=== PATIENT | female | born 1945 | race Caucasian/White ===

== ENCOUNTER → 2018-03-18 14:30 | Outpatient (CLI) | payer MEDICARE, SELFPAY ==
--- NOTE | 2018-03-18 | DI.MRI.S_ITS ---
PROCEDURE: MR KNEE RT WO CON INDICATIONS: RIGHT KNEE PAIN TECHNIQUE: Noncontrast sagittal PD fast spin echo and T2 fast spin echo with fat saturation, sagittal 3-D FLASH with fat saturation; coronal T1 spin echo and PD fast spin echo with fat saturation, and axial PD fast spin echo with fat saturation through the knee. COMPARISON: None. FINDINGS: Image quality: Excellent. Menisci: There is peripheral displacement of medial meniscus bony medial collateral ligament. Suggestion of complex tear involving posterior horn of medial meniscus extending to inferior articulating surface. No evidence of focal lateral meniscal tear. The meniscal root ligaments appear intact. Cruciate ligaments: Degenerative changes throughout ACL is seen. No evidence of full thickness ACL rupture. PCL is intact. Medial structures: The medial collateral ligament appears intact. The posterior oblique ligament, semimembranosus tendon insertions, oblique popliteal ligament, and meniscocapsular junction appear intact. Visualized portions of the pes anserinus tendons appear normal. No abnormal bursal fluid. Lateral structures: The lateral collateral ligament, long and short heads of the biceps femoris tendon appear intact. The popliteus tendon appears normal; the popliteofibular ligament appears intact. The posterosuperior and anteroinferior popliteomeniscal fascicles appear intact. The arcuate and fabellofibular ligaments appear intact, on either side of the lateral inferior geniculate artery. Iliotibial band appears normal. Anterior structures: The quadriceps and patellar tendons appear intact. Patellar alignment is normal. No femoral trochlear dysplasia or ventral trochlear prominence. No edema in the infrapatellar fat pad. Bones and cartilage: There is moderate to severe tricompartmental osteoarthritis. No fracture or dislocation. Significant chondromalacia patella small patella cartilage is seen. Joint space: There is small to moderate amount of knee joint fluid. No Osman's cyst. Normal appearing synovial plicae are incidentally noted. Impression: 1. Complex tear involving posterior horn of medial meniscus extending to inferior articulating surface. Peripheral displacement of medial meniscus bony medial collateral ligament. No evidence of focal lateral meniscal tear. 2. Myxoid degenerative changes throughout ACL. No full thickness ACL rupture. PCL is intact. 3. Moderate to severe tricompartmental osteoarthritis. Diffuse chondromalacia patella. . Dictated by: Carl Ta M.D. on 03/18/2018 at 16:20 Approved by: Carl Ta M.D. on 03/18/2018 at 16:25
== END ==
PROVIDERS: Visit Provider Orthopaedic Surgery
DX: S83.231A Complex tear of medial meniscus, current injury, right knee, initial encounter (principal); M25.561 Pain in right knee; M17.11 Unilateral primary osteoarthritis, right knee; M22.41 Chondromalacia patellae, right knee
CPT/HCPCS: 73721

== ENCOUNTER → 2018-03-27 16:09 | Outpatient (CLI) | payer MEDICARE, SELFPAY ==
[2018-03-27 16:25] LABS: RBC Urine None Seen (0-5/HPF)
[2018-03-27 16:45] LABS: Add Manual Diff / Slide Review NO; Basophils Percent Auto 0.6 % (0-2); Eosinophils Percent Auto 2.8 % (2-4); Hematocrit 39.5 % (36-46); Hemoglobin 13.7 g/dL (12.0-16.0); Lymphocytes Percent Auto 27.8 % (25-40); Mean Corpuscular HGB Conc 34.6 % (30-36); Mean Corpuscular Hemoglobin 30.7 PG (26-34); Mean Corpuscular Volume 88.7 fL (80-100); Monocytes Percent Auto 8.1 % (3-14); Neutrophils Absolute Auto 5500 /uL (3000-5900); Neutrophils Percent Auto 60.7 % (50-75); Platelet Count 233 X10^3/uL (150-400); Red Blood Cell Count 4.45 X10^6/uL (4.0-5.2); Red Cell Distribution Width 13.7 % (11.6-14.8)
[2018-03-27 17:12] LABS: Appearance Urine UA CLEAR; Bilirubin Urine UA NEGATIVE (NEGATIVE); Color Urine UA YELLOW; Glucose Urine UA NEGATIVE (Normal); Ketones Urine UA NEGATIVE (NEGATIVE); Leukocyte Esterase Urine UA TRACE (NEGATIVE); Nitrite Urine UA Negative (Negative); Occult Blood Urine UA NEGATIVE (Negative); Protein Urine UA NEGATIVE (Negative); Urobilinogen Urine UA 0.2 E.U./dL (0.2); pH Urine UA 6.5 (4.5-8.0)
[2018-03-27 17:19] LABS: Bacteria Urine Occasional (0-1); Culture Indicated Urine Specimen Cultured; Squamous Epithelial Cell Urine 1-5 /HPF; WBC Urine 1-5/HPF (0-5/HPF)
[2018-03-27 17:20] LABS: BUN Creatinine Ratio 22.5 (6-22); Blood Urea Nitrogen 18 mg/dL (7-17); Calcium 9.4 mg/dL (8.4-10.2); Carbon Dioxide 28 mmol/L (22-32); Chloride 100 mmol/L (98-107); Estimated Glomerular Filt Rate > 60.0 mL/min (>60); Glucose 91 mg/dL (80-110); HEMOLYSIS < 15 (0-50); Sodium 138 mmol/L (137-145)
[2018-03-27 17:22] LABS: Hemoglobin A1C% w Est Avg Glu 5.4 % (4.0-6.0)
== END ==
PROVIDERS: Visit Provider Orthopaedic Surgery
DX: Z01.818 Encounter for other preprocedural examination (principal); Z01.812 Encounter for preprocedural laboratory examination; N39.9 Disorder of urinary system, unspecified; R73.09 Other abnormal glucose
CPT/HCPCS: 36415; 80048; 81001; 83036; 85025; 87086; 93005; 93010

== ENCOUNTER 2018-05-15 08:10 | Day surgery (SDC) | payer MEDICARE, SELFPAY ==
[2018-04-30 13:54] VITALS: BMI 30.5
[2018-05-15] VITALS (18 sets, daily range): BP systolic 83–139; BP diastolic 35–76; PULSE 58–95; RESP 10–20; TEMP 36.1–37.1; O2SAT 91–99; BMI 30.2
--- NOTE | 2018-05-15 06:00 | DI.RAD.S_ITS ---
PROCEDURE: XR KNEE RT 1TO2V INDICATIONS: post operative TECHNIQUE: 2 view(s) of the knee acquired. COMPARISON: None. FINDINGS: Bones: Patient is status post knee joint arthroplasty. Hardware components are in expected positions. Visualized bony structures are intact. Soft tissues: Overlying postoperative changes are noted. IMPRESSION: Post right total knee arthroplasty with anatomic right knee alignment. Dictated by: Carl Ta M.D. on 05/15/2018 at 14:09 Approved by: Carl Ta M.D. on 05/15/2018 at 14:09
[2018-05-15] MEDS: LACTATED RINGERS 1,000 ML 42 ML IV ×2 (09:28→12:27)
[2018-05-15] MEDS: VANCOMYCIN 1,000 MG/200 ML FROZ.PIGGY 200 MG IV (09:29)
[2018-05-15] MEDS: ACETAMINOPHEN 325 MG TABLET 975 MG PO ×3 (09:34→20:18)
[2018-05-15] MEDS: CELECOXIB 200 MG CAPSULE PO (09:34)
[2018-05-15] MEDS: PREGABALIN 75 MG CAPSULE PO (09:34)
--- NOTE | 2018-05-15 10:07 | PM.PREOP ---
Pre-operative Note Interval Note Pre-op Check: Yes History & Physical Reviewed by Physician and Yes Exam Performed Changes: No
[2018-05-15] MEDS: CEFAZOLIN 2 GM/100 ML FROZ.PIGGY IV ×2 (10:50→20:15)
--- NOTE | 2018-05-15 11:25 | SUR.OPER ---
Supine on padded OR bed. Pillow under head, arms secured on padded armboards <90 degree abduction. Safety belt across torso. Non-operative leg secured with tape over blanket over lower leg. Operative leg secured in DeMayo/Cruzito positioner. Foam padded brace at thigh of operative leg.
[2018-05-15] MEDS: BUPIVACAINE 0.25% W/ EPI VIAL 50 ML INJ (11:29)
[2018-05-15] MEDS: BUPIVACAINE LIPOSOME 266 MG/20 ML VIAL INJ (11:30)
--- NOTE | 2018-05-15 13:21 | P.OP_ITS ---
Operative Date/Time/Diagnoses Date of procedure: 05/15/18 Time of procedure: 13:01 Pre-op diagnosis: right knee OA Post-op diagnosis: same Procedure & Clinicians Procedure: right total knee arthroplasty Same procedure as scheduled: Yes Indications: The patient has had progressively worsening right knee pain with radiographic changes consistent with arthritis. Non-operative management has failed and the patient has requested total knee replacement. The risks, benefits and alternatives to surgery were discussed with the patient prior to proceeding. Risks discussed included, but were not limited to, failure to relieve pain, stiffness, infection, nerve damage, deep venous thrombosis, pulmonary embolism, stroke, coma, heart attack, permanent paralysis and , as well as the potential need for eventual revision of the prosthetic. Surgeon: Emily Basurto Contact Center Analyst: Mirta Batres Anesthesia Type: General and Spinal Operative Notes Findings: Severe right knee osteoarthritis Closure Type: primary Specimen(s): none sent Implants & Drains: William BCS2 35 mm patella, size 5 right femur, size 5 right tibia, +10 poly Applied: drain(s) Estimated Blood Loss (mL): 250 Blood products transfused: none Tourniquet time (min): 75 Procedure in detail: The patient was seen in the pre-operative area, where the patient identified the right knee as the operative site and this was marked with my initials. The patient received pre-operative antibiotics, and was taken to the operating room and placed on the operative table in the supine position. After satisfactory anesthesia, a full time paramedic out was performed. The right leg was encircled with a tourniquet about the proximal thigh, and the leg was prepared from the toes to the tourniquet with ChloroPrep in the usual fashion and draped through sterile drapes. The leg was elevated and exsanguinated with Eschmark bandage and the tourniquet inflated to [250] mmHg pressure. The knee was approached through an approximately 18 cm incision centered over the patella and carried into the knee through a medial parapatellar arthrotomy. A portion of the medial and lateral meniscus was resected. Soft tissue was carefully mobilized around the patella the patella was measured with a caliper. Bone was resected from the patella and the patellar height was reconstituted with up an appropriate sized patellar component. A cover was then placed on the patella. A small amount of additional medial and lateral meniscus was resected. The visionare guide fit well to the distal femur. It looked like an appropriate distal femoral cut and the cut was made without difficulty. The rotation was assessed and the appropriate size femoral guide was placed on the distal femur and finishing cuts were made. There was no evidence of notching. The anterior, posterior and chamfer cuts were then made. The posterior osteophytes and soft tissues were then removed. The posterior capsule was injected with part of a mixture of 60 ml 0.25% Marcaine mixed with 20 ml Exparel for post operative pain control. The remainder of this mixture was injected into the capsule and subcutaneous tissues during cement curing. The tibia was prepared and the visionaire guide fit well to the distal tibia. The rotation was assessed. The patient was placed in extension residual medial and lateral meniscus as well as any residual bone was carefully resected. [No] additional tibia was resected. Hemostasis was achieved especially posteriorly. Additional local was injected into the posterior capsule. The extension gap was assessed and additional releases for gap balancing were performed as necessary. It was checked with the gap corporate development manager. The femoral component was trial was placed and the notch was finished. Trial tibial and femoral components were then placed and the knee placed through a range of motion. Range of motion was [ 0-130], with good stability throughout the range. The trials were then removed, and the tibia was finished. The bone was prepared with pulsatile lavage, and dried with a sponge. Cement was applied and the final prosthetics placed. Excess cement was removed during and after cement curing. A brief Betadine soak was performed. After confirming there was no extruded cement posteriorly, the final tibial insert was placed. The knee was copiously irrigated and the tourniquet deflated. Hemostasis was obtained with the [Aquamantys system]. A drain was placed and brought out superolaterally. The capsule was closed with interrupted nonabsorbable suture. The subcutaneous layer was closed with barbed sutures, and the skin with a running 3-0 V-Lock suture and Surgical glue. An Aquacel Ag dressing was applied and the patient was taken to recovery having tolerated the procedure well. Complications: none Condition: stable Disposition: Acute Care Plan for aftercare: The patient will be maintained on a standard total knee replacement protocol with weight bearing as tolerated. The patient will receive aspirin and sequential compression devices for DVT prophylaxis. The patient will be discharged home when safe for the home environment.
[2018-05-15] MEDS: LACTATED RINGERS 1,000 ML 125 ML IV (15:41)
--- NOTE | 2018-05-15 17:15 | PT.IIE ---
Current Diagnoses Unilateral primary osteoarthritis, right knee (05/15/18) Surgery Performed Operation Date: 05/15/18 10:45 Actual Procedures p Total Knee Arthroplasty(Right) - Emily Basurto MD Surgical History (Last Updated 04/30/18 @ 14:17 by Ewelina Andersen, RN) History of total right hip arthroplasty (Acute) Medical History (Last Updated 04/30/18 @ 14:20 by Ewelina Andersen, RN) Anxiety (Acute) Arthritis (Acute) Asthma (Acute) GERD (gastroesophageal reflux disease) (Acute) HTN (hypertension) (Acute) Heart murmur (Acute) Hyperlipidemia (Acute) Migraines (Acute) Physical Therapy Inpatient Evaluation/Re-Eval M1 PT/OT-IP Prior Functional Status Start: 05/15/18 17:17 Freq: NEEDED Status: Active Protocol: Document 05/15/18 17:15 DLM (Rec: 05/15/18 17:28 DLM [email or web address]) Medical Review Prior Functional Status Medical History Reviewed Yes Diet/Fluid Consistency Regular Communication WNL Mobility and Gait Independent without device, ambulates community distances Activities of Daily Living and IADL's Independent Social History Household Members family Living Arrangements House Number of Floors (Floors) One Floor Number of Stairs To Enter/Railing? 3 with rail Home Equipment Four Wheel Walker Straight Cane M2 PT-IP Current Condition Start: 05/15/18 17:17 Freq: NEEDED Status: Active Protocol: Document 05/15/18 17:15 DLM (Rec: 05/15/18 17:28 DLM [email or web address]) Physical Therapy Current Condition Current Condition Evaluation Date 05/15/18 Treatment Diagnosis right TKA Onset Date 05/15/18 Weight Bearing Status Weight Bearing Status Weight Bear as Tolerated M3 PT-IP Subjective Start: 05/15/18 17:17 Freq: NEEDED Status: Active Protocol: Document 05/15/18 17:15 DLM (Rec: 05/15/18 17:28 DLM [email or web address]) Subjective Physical Therapy Visit Type Type Initial Evaluation Visit Start Time 16:35 Visit Stop Time 17:15 Total Visit Minutes 40 Number of ORTHOPEDIC TECH Visits 0 Physical Therapy Visit Comments Patient Comments she feels a little whoozy, describes double vision while up walking Patient Goals discharge home with help from her Boyfriend, Jake Therapy Pain Assessment Pain When Pain Assessed After Treatment Pain Present Pain Present Pain Reported Location Right Knee Intensity 2 Scale Used Numeric (1 - 10) Description Aching Pain Management Techniques Apply Cold M4 PT-IP Mobility and Gait Start: 05/15/18 17:17 Freq: NEEDED Status: Active Protocol: Document 05/15/18 17:15 DL (Rec: 05/15/18 17:28 [facility] [email or web address]) PT-Transfer Assessment Sit to and From Stand Sit to and from Stand Standby Assistance Use of Upper Extremities Equipment Transfer Assistive Device Gait Belt Front Wheeled Walker Transfers Transfer Destination Chair Transfer Technique Stand Step Pivot Transfer Ability Level of Assist Standby Assistance Use of Upper Extremities Comments Mobility Comments BP checked before mobility and is 128/66 Pt was up in chair at start of visit, left sitting up for dinner Gait Assessment Gait Gait Assistance Required: Standby Assistance Distance (Feet) 65 Able to Maintain Weight Bearing Status Yes During Gait Assistive Devices Assistive Device Gait Belt Front Wheeled Walker Gait Deviations General Gait Pattern Antalgic Factors Limiting Gait Function Factors Limiting Gait Function Decreased Activity Tolerance Decreased Strength PT-Balance Assessment Sitting Balance and Reactions Static Sitting Balance Ability Normal Dynamic Sitting Balance Ability Normal Standing Balance and Reactions Static Standing Balance Ability Good Dynamic Standing Balance Ability Good Device Used FWW M5 PT-IP Objective Assessments Start: 05/15/18 17:17 Freq: NEEDED Status: Active Protocol: Document 05/15/18 17:15 DL (Rec: 05/15/18 17:28 [facility] [email or web address]) Orientation Orientation/Cognition Level of Alertness Alert Orientation Name Age Birthday Month Date Year Day of Week Place Situation Language Function Ability No Deficits Noted Safety Awareness Understands Safety Issues Memory Description No Deficits Noted Comments whoozy feeling did not get better or worse during therapy , double vision during gait got better once she returned to sitting in chair Gross Range of Motion Upper Extremity ROM Assessment Within Functional Limits Lower Extremity ROM Assessment Right Impaired Impairments post-op, extension 0 degrees, flexion 80 degrees Strength Upper Extremity Strength Assessment Within Functional Limits Lower Extremity Strength Assessment Right Impaired Hip independent in straight leg raise off chair Knee knee ext 3-/5, flexion 3+/5 Ankle moving ankle actively Comments Strength Comments right knee post-op Coordination Assessment Gross Coordination Gross Coordination WNL Sensation Assessment Comments Sensation Comments she describes numbness in buttock area post-op Muscle Tone Muscle Tone WNL Yes M6 PT-IP Treatment Start: 05/15/18 17:17 Freq: NEEDED Status: Active Protocol: Document 05/15/18 17:15 DLM (Rec: 05/15/18 17:28 DLM [email or web address]) Physical Therapy Treatment Exercises Exercises Ankle Pumps Education Education Provided Weight Bearing Status Post-Op Packet Safety M7 PT-IP Assessment and Plan Start: 05/15/18 17:17 Freq: NEEDED Status: Active Protocol: Document 05/15/18 17:15 DLM (Rec: 05/15/18 17:28 DLM [email or web address]) PT Summary Assessment and Plan Potential Rehabilitation Potential Excellent Status of Condition at Evaluation Evolving Summary Impairments Pain ROM Strength Balance Bed Mobility Transfers Assessment Summary She tolerated light activity this visit with some complaints of feeling whoozy and double vision during gait . BP was WNL during this visit . Pt left sitting up in recliner for dinner. Anticipate she will be able to discharge home when medically cleared. Will do stair training next visit. Goals Bed Mobility Goal Independent Transfer Goal Independent Front Wheeled Walker Gait Goal Independent Front Wheel Walker Gait Distance 150 feet Other Goals up and down 3 steps with one rail and cane with SBA Days to Meet Goals 2 Frequency of Treatment Frequency Of Treatment Twice a Day Treatment Plan Physical Therapy Treatment Plan Bed Mobility Training Transfer Training Gait Training Therapeutic Exercise Balance Retraining Post Op Education Discharge Planning Hot or Cold Pack Recommendations To Nursing Amount of Assist Needed 1 Person Assist Discharge Recommendations PT Discharge Recommendations Home with Assistance Outpatient PT
[2018-05-15] MEDS: ASPIRIN EC 81 MG TABLET PO (20:18)
[2018-05-15] MEDS: ATORVASTATIN 20 MG TABLET 40 MG PO (20:18)
[2018-05-15] MEDS: TRAZODONE 50 MG TABLET PO (20:19)
[2018-05-15] MEDS: DOCUSATE 100 MG CAPSULE PO (20:19)
--- NOTE | 2018-05-15 21:58 | PC.NURSE ---
POST-OP pt laying in bed, easily arousable. R knee RITA wrap dressing and hemovac intact. pt agreeable to get up to chair after encouragement from MD. VALLEJO with FWW for ambulation. Pt initially c/o numbness to bottom or R foot and buttock area at the beginning of the shift (pt states now resolved). c/o minimal pain rated 2-3/10, controlled on scheduled tylenol. pt currently resting in bed. call light within reach.
[2018-05-16] MEDS: OXYCODONE IR 5 MG TABLET PO ×3 (00:31→13:55)
[2018-05-16] MEDS: LACTATED RINGERS 1,000 ML 125 ML IV (00:33)
[2018-05-16 01:30] VITALS: O2SAT 95
[2018-05-16] MEDS: CEFAZOLIN 2 GM/100 ML FROZ.PIGGY IV (02:48)
[2018-05-16 05:27] VITALS: BP 138/70; PULSE 67; RESP 17; TEMP 36.4; O2SAT 96
--- NOTE | 2018-05-16 05:28 | PC.NURSE ---
AxOx3, good PO intake, IVF stopped this AM, no nausea. Pain controlled with 5mg Percolone. Ice applied to right knee which is in an mayte wrap, hemovac in place draining 150cc of sanguinous drainage. Ambulates with one person assist and walker to bathroom. SCDs bilaterally applied. Tolerating room air at 96%. CMS +. No numbness. Right leg elevated on pillow
[2018-05-16 06:29] LABS: Hematocrit 33.6 % (36-46); Hemoglobin 11.7 g/dL (12.0-16.0)
[2018-05-16 07:00] VITALS: BP 116/55; PULSE 61; RESP 16; TEMP 36.3; O2SAT 92
--- NOTE | 2018-05-16 07:43 | PM.DS.1 ---
History of Present Illness Chief complaint: [id number] RIGHT TOTAL KNEE ARTHROPLASTY Discharge Providers Date of admission: 05/15/18 08:10 Primary care physician: Maylin Bautista Consults: 05/15/18 14:21 Consult to Discharge Planning Routine Comment: Consult to Physical Therapy Evaluate & Treat Comment: oob today Physician Instructions: postop TKA protocol Consult to Respiratory Therapy Evaluate & Treat Comment: Physician Instructions: Evaluate and treat Discharge provider: Emily Basurto MD Discharge Date: 05/16/18 Summary Discharge Diagnosis: Left total knee arthroplasty Hospital Course: Patient was taken to the operating room and underwent a left total knee arthroplasty. She saw physical therapy and was mobilized to the bathroom. She was stable during her hospital stay and was able to ambulate with a walker without difficulty. She was discharged to home. Her leg was benign and she was able to do a straight leg raise the time of discharge. Patient did well and slightly better than anticipated and was ready for discharge on postoperative day 1. Exam Vital Signs (past 8 hours): - 05/16/18 01:30 05/16/18 05:27 Temperature 97.5 F L Pulse Rate 67 Respiratory Rate 17 Blood Pressure 138/70 Pulse Oximetry 95 96 Oxygen Delivery Method Nasal Cannula Oxygen Flow Rate 0 Narrative Exam Narrative: Alert oriented ambulating without difficulty, dressings dry neurologically intact distally calf is soft able to do a straight leg raise drainage has stopped in the Hemovac tube Objective Labs Result Diagrams: 05/16/18 06:18 Labs: Laboratory Results - last 24 hr 05/16/18 06:18 Hgb 11.7 L Hct 33.6 L Discharge Plan Discharge Plan Patient Disposition: Home Discharge comment: Discharge to home. Keep previously scheduled follow-up appointment in 10-14 days. Ambulate multiple times per day. Discharge Med Rec/Prescriptions Prescriptions: New oxycodone 5 mg Tablet 5 mg PO Q3HR PRN (Reason: Pain, Moderate (4-6)) Qty: 30 RF: 0 No Action atorvastatin 40 mg Tablet 40 mg PO BEDTIME RF: 0 potassium chloride 10 mEq Capsule, Extended Release 10 meq PO DAILY RF: 0 citalopram 40 mg Tablet 40 mg PO DAILY RF: 0 trazodone 50 mg Tablet 50 mg PO BEDTIME RF: 0 aspirin 81 mg Tablet,Delayed Release (Dr/Ec) 81 mg PO DAILY RF: 0 meloxicam 7.5 mg Tablet 7.5 mg PO DAILY RF: 0 ibuprofen 200 mg Tablet 200 mg PO DAILY PRN (Reason: pain) RF: 0 ranitidine HCl 150 mg Capsule 150 mg PO BID RF: 0 triamterene-hydrochlorothiazid 75-50 mg Tablet 1 tab PO QAM RF: 0 Provider Discharge Instructions Diet: Diet as Tolerated Activity: ambulate around the house Cold/Heat Therapy: ice knee multiple times a day Skin/Wound/Dressing Care Report to your healthcare provider any signs of infection, such as:: chills, fever, night sweats, increased pain and unusual drainage Dressing: keep dressing on until appointment Visit Report/Discharge Packet Instructions: DI for Knee Replacement Discharge Data Primary Care Provider: Maylin Bautista Attending Provider: Emily Basurto Admit Date/Time: 05/15/18 08:10
[2018-05-16] MEDS: TRIAMTERENE/HCTZ 37.5/25 TABLET 1 CAP PO (09:42)
[2018-05-16] MEDS: DOCUSATE 100 MG CAPSULE PO (09:43)
[2018-05-16] MEDS: POTASSIUM CHLORIDE 10 MEQ TAB PO (09:43)
[2018-05-16] MEDS: ACETAMINOPHEN 325 MG TABLET 975 MG PO (09:43)
[2018-05-16] MEDS: ASPIRIN EC 81 MG TABLET PO (09:43)
[2018-05-16] MEDS: CITALOPRAM 20 MG TABLET 40 MG PO (09:43)
[2018-05-16] MEDS: MELOXICAM 7.5 MG TABLET PO (09:43)
--- NOTE | 2018-05-16 10:27 | PT.IPTN ---
Current Diagnoses Unilateral primary osteoarthritis, right knee (05/15/18) Surgery Performed Operation Date: 05/15/18 10:45 Actual Procedures p Total Knee Arthroplasty(Right) - Emily Basurto MD Physical Therapy Treatment Note M2 PT-IP Current Condition Start: 05/15/18 17:17 Freq: NEEDED Status: Active Protocol: Document 05/16/18 10:27 [facility] (Rec: 05/16/18 10:33 [facility] [id number]) Physical Therapy Current Condition Current Condition Evaluation Date 05/15/18 Treatment Diagnosis right TKA Onset Date 05/15/18 Weight Bearing Status Weight Bearing Status Weight Bear as Tolerated M3 PT-IP Subjective Start: 05/15/18 17:17 Freq: NEEDED Status: Active Protocol: Document 05/16/18 10:27 [facility] (Rec: 05/16/18 10:33 [facility] [id number]) Subjective Physical Therapy Visit Type Type Treatment Note Visit Start Time 09:52 Visit Stop Time 10:27 Total Visit Minutes 35 Number of MARKETING SERVICES SPECIALIST Visits 0 Physical Therapy Visit Comments Patient Comments pt states she feels pretty good, she didn't sleep well but pain is well controlled. Therapy Pain Assessment Location Right Knee Intensity 2 Scale Used Numeric (1 - 10) Pain Management Techniques Apply Cold M4 PT-IP Mobility and Gait Start: 05/15/18 17:17 Freq: NEEDED Status: Active Protocol: Document 05/16/18 10:27 RCC (Rec: 05/16/18 10:33 [facility] [id number]) PT-Bed Mobility Assessment Sit to Supine Sit to Supine Independent Scooting Scooting to Edge of Bed Independent PT-Transfer Assessment Sit to and From Stand Sit to and from Stand Standby Assistance Equipment Transfer Assistive Device Gait Belt Front Wheeled Walker Transfers Transfer Destination Bed Transfer Technique Stand Step Pivot Transfer Ability Level of Assist Standby Assistance Gait Assessment Gait Gait Assistance Required: Standby Assistance Distance (Feet) 80 Assistive Devices Assistive Device Gait Belt Front Wheeled Walker Gait Deviations General Gait Pattern Ataxic Decreased Feet Clearance Factors Limiting Gait Function Factors Limiting Gait Function Decreased Strength Limited Range of Motion Pain Stair Climbing Assessment Evaluation Level of Assist On Stairs Standby Assistance Devices Stair Climbing Assistive Devices Straight Cane Right Railing Technique/Endurance Stair Climbing Direction Ascend and Descend Stair Climbing Technique Step to Step Number of Steps Climbed 3 Query Text: Stair Climbing Set # Repetitions (reps) 1 Comments Stair Climbing Comments R rail ascending, L descending ; SPC in other hand. M5 PT-IP Objective Assessments Start: 05/15/18 17:17 Freq: NEEDED Status: Active Protocol: Document 05/16/18 10:27 RCC (Rec: 05/16/18 10:33 [facility] [id number]) Gross Range of Motion Lower Extremity ROM Assessment Right Impaired Impairments R knee AROM 5-85 deg. M6 PT-IP Treatment Start: 05/15/18 17:17 Freq: NEEDED Status: Active Protocol: Document 05/16/18 10:27 RCC (Rec: 05/16/18 10:33 [facility] [id number]) Physical Therapy Treatment Exercises Exercises Ankle Pumps Quad Sets Seated Knee Flexion/Extension M7 PT-IP Assessment and Plan Start: 05/15/18 17:17 Freq: NEEDED Status: Active Protocol: Document 05/16/18 10:27 RCC (Rec: 05/16/18 10:33 [facility] [id number]) PT Summary Assessment and Plan Summary Progress Towards Goals Safe For Discharge Assessment Summary POD #1 R TKA. Pt tolerated ambulation well, and stairs with SPC and minimal cuing. Pt educated on the importance of proper knee positioning, and performed post-op exercises with good understanding. She has a FWW available at home as well. Pt is cleared to d/c when medically stable. Goals Bed Mobility Goal Independent Transfer Goal Independent Front Wheeled Walker Gait Goal Independent Front Wheel Walker Gait Distance 150 feet Other Goals up and down 3 steps with one rail and cane with SBA Days to Meet Goals 2 Frequency of Treatment Frequency Of Treatment Twice a Day Treatment Plan Other Recommendations and Next Treatment prog. gait, post-op exercises Focus Recommendations To Nursing Amount of Assist Needed 1 Person Assist Discharge Recommendations PT Discharge Recommendations Home with Assistance Outpatient PT
--- NOTE | 2018-05-16 10:32 | CM.DANOTE ---
Patient is a 72 year old female who was admitted on 05/15/18 for Right Total Knee. Pt has [facility] and [employer] for insurance and her PCP is Dr. Maylin Bautista. EMR was reviewed. Per Ortho MD, pt medically stable for d/c home today after further PT. Per PT, pt likely safe for d/c home with family assist and outpt therapy pending further stair and CG training this morning. SW met bedside with pt and explained role and she confirms that she lives at home on [address] with son and grandson who can provide some assist at d/c and her boyfriend Jake plans to help as well. Pt is Independent with ADL's at baseline and does not use equipment to ambulate and drives. Pt does not anticipate any SW needs at d/c and is comfortable with d/c home with family and boyfriend assist later today. Plan: SW to follow for likely pt d/c home today via POV and family to assist as needed. No SW needs at this time. SHAE Batista Discharge Planning/Care Management CM Discharge Assessment Start: 05/16/18 10:26 Freq: Status: Active Protocol: Document 05/16/18 10:30 BF (Rec: 05/16/18 10:32 [id number]) Discharge Planning Assessment Assigned Natural Resource Specialist SHAE Mcfarland DPOA/Assigned Designee Name son Advance Directives? No History Provided By Patient Medical Record Has Patient been admitted in last 30 No days? Prior Living Arrangements House Household Members family Comment Lives with son and grandson Type of transporation used prior to Drives own vehicle admit Independent with ADL's Yes Is patient alert and oriented? Yes Caregiver for Another No: grandson is a young adult Comment Home with family support Barriers to Discharge No Discharge Plan Home Community Services Physical Therapy Transportation Arrangement Family or boyfriend can provide transport at d/c. Referrals Initiated None needed Whiteboard Updated in Patient Room with Yes name and ext. # of Natural Resource Specialist Review Status In Process Please Provide Date Initial DC 05/16/18 Assessment Was Performed Next Review Type Continued Stay Review Pre-Anesthesia Assessment Start: 04/30/18 13:54 Freq: Status: Active Protocol: Document 04/30/18 13:54 CAB (Rec: 04/30/18 14:50 CAB [id number]) Pre-Anesthesia Assessment Patient Information Reviewed Via Phone Assessment Assessment Completed With Patient Primary Care Provider Maylin Bautista Seen Specialist in Last 12 Months Yes Specialist Seen Orthopedist Primary Language Urdu Vacuum Pan Operator Required No Height 162.56 cm Weight 79.832 kg Body Mass Index (BMI) 30.2 Hearing Ability Normal Visual Assist Glasses Dentition Type Teeth, Natural Present Barriers to Learning Age related Memory Hx Anesthesia Reactions Yes: Nausea following colonoscopy Hx Family Anesthesia Reaction No Hx Malignant Hyperthermia No Hx Blood Transfusions No Anesthesia Review Requested No Talent Development Specialist No alcohol intake current alcohol intake frequency a few times a week Smoking Status Never smoker Substance Use Type does not use Pain Present Pain Reported Musculoskeletal Symptoms Abnormal Gait Difficulty Walking Joint Pain Limited Range of Motion History of Falling (Recent or History of No ) Patient is completely paralyzed or No completely immobile Mental Status Oriented to own ability Is patient on oxygen? No Does patient have COLLAZO/SOB No Suspected Sleep Apnea No Currently Taking a Beta Adia No Can You Climb a Flight of Stairs Without No: r/t pain SOB Hx Chest Pain No Hx SOB No Hx Syncope or Dizziness No Anti-Coagulant Therapy No Has a Shot Man No Cardiac Testing No Hx Pacemaker/ICD No Pacemaker Rep Required? No Cardiac Clearance Received Not Applicable Diet Type At Home Regular dysphagia No Bladder Pattern Incontinent Nocturia Urinary Catheter Present No Hx Urinary Self Catheterization No Diabetes No Patient No Lactating No Hx Drug Resistant Organism No Presence of External or Internal Medical Yes Devices Comment Right hip prosthesis Have you traveled outside the [facility] States in the last 30 days? Marital Status Lives With family Prior Living Arrangements House Number of Floors (Floors) One Floor Number of Stairs To Enter/Railing? 3 steps, railing present Support System Child/Children Family Friend(s) Does the Patient Have Assistance After Yes Surgery Patient Discharge Plan Description Return Home Feels Safe in Current Environment Yes Been Physically Hurt or Threatened By a No Person in Current Environment Do you have thoughts of harming yourself None or others? Are you currently considering suicide? No Do you have a plan to hurt yourself or No Plan others? Do You Have Any Spiritual Beliefs That No May Affect Your HC Choices? Do You Have Any Cultural Practices That No May Affect Your HC Choices? Spiritual Referral None Who Can We Speak to About Patient's Care Family, friends Identifying Code for Release of Patient Declines to issue Information Health Care Proxy/Next of Kin Jeremy or Felix (sons) Health Care Proxy Phone Number Jeremy: [phone] Felix: Emergency Contact Name Jeremy or Felix (tyrone) Emergency Contact Phone Number Jeremy: [phone] Felix: Advance Directives? No: Declines further information Power of Regenerator Operator No PAC Instructions Do not shave/clip surgical site Durable medical equipment Medications to take/avoid Nasal antibiotic NPO Post-op transportation Pre-surgical wash Sturdy shoes/comfortable clothes Do not bring valuables and remove jewelry
--- NOTE | 2018-05-16 13:41 | PC.NURSE ---
discharge pt states pain controlled with scheduled medications. Did state she wanted oxy prior to d/c for ride home which was provided. d/c instructions provided to pt. States she has previously scheduled apt for f/u with . notified to contact MD if any other questions or concerns arrise. pt states she is taking all her belongings with her. instructed to push call light when ready to be wheeled out of hospital.
--- NOTE | 2018-05-16 14:02 | PC.NURSE ---
Ice packs replenished, water freshened, pain meds given, and prune juice given. Pt out via w/c by ACCOUNT DEVELOPMENT SPECIALIST to POV with S.O. and all belongings.
== END 2018-05-16 14:03 | disposition home or self-care (01) ==
LOC: AC 05-16 08:54 → OR 05-18 10:02
PROVIDERS: PCP Physician Assistant Medical; Visit Provider Orthopaedic Surgery
PROC: 0SRC0JZ Replacement of Right Knee Joint with Synthetic Substitute, Open Approach (ICD-10-PCS; CPT 27447; principal; 2018-05-15 10:45)
DX: M17.11 Unilateral primary osteoarthritis, right knee (principal); I10 Essential (primary) hypertension; E11.9 Type 2 diabetes mellitus without complications
CPT/HCPCS: 27447; 36415; 73560; 85014; 85018; 97110; 97116; 97162; C1776; C9290; J0690; J1100; J2250; J2274; J2405; J2704; J3010; J3370

== ENCOUNTER → 2018-12-07 11:52 | Outpatient (CLI) | payer MEDICARE, SELFPAY ==
[2018-05-15 15:13] VITALS: BMI 30.2
[2018-12-07 12:35] LABS: Hematocrit 42.5 % (36-46); Hemoglobin 14.2 g/dL (12.0-16.0); Mean Corpuscular HGB Conc 33.5 % (30-36); Mean Corpuscular Hemoglobin 29.7 PG (26-34); Mean Corpuscular Volume 88.6 fL (80-100); Platelet Count 248 X10^3/uL (150-400); Red Blood Cell Count 4.79 X10^6/uL (4.0-5.2); Red Cell Distribution Width 14.3 % (11.6-14.8); White Blood Cell Count 8.2 X10^3/uL (4.5-11.0)
[2018-12-07 12:51] LABS: Hemoglobin A1C% w Est Avg Glu 5.2 % (4.0-6.0)
[2018-12-07 13:05] LABS: Bacteria Urine None Seen; RBC Urine None Seen (0-5/HPF); WBC Urine None Seen (0-5/HPF)
[2018-12-07 13:21] LABS: Appearance Urine UA CLEAR; Bilirubin Urine UA NEGATIVE (NEGATIVE); Color Urine UA YELLOW; Glucose Urine UA NEGATIVE (Negative); Ketones Urine UA NEGATIVE (NEGATIVE); Leukocyte Esterase Urine UA NEGATIVE (NEGATIVE); Nitrite Urine UA NEGATIVE (Negative); Occult Blood Urine UA NEGATIVE (Negative); Protein Urine UA NEGATIVE (Negative); Urobilinogen Urine UA 0.2 E.U./dL (0.2); pH Urine UA 5.5 (4.5-8.0)
[2018-12-07 13:22] LABS: BUN Creatinine Ratio 21.3 (6-22); Blood Urea Nitrogen 17 mg/dL (7-17); Calcium 9.7 mg/dL (8.4-10.2); Carbon Dioxide 28 mmol/L (22-32); Chloride 100 mmol/L (98-107); Estimated Glomerular Filt Rate > 60.0 mL/min (>60); Glucose 97 mg/dL (80-110); HEMOLYSIS < 15 (0-50); Potassium 4.5 mmol/L (3.4-5.1); Sodium 138 mmol/L (137-145)
[2018-12-07 13:35] LABS: Culture Indicated Urine Cult Not Indicated; Squamous Epithelial Cell Urine 0-1 /HPF (0-5/HPF)
== END ==
PROVIDERS: PCP Physician Assistant Medical; Visit Provider Orthopaedic Surgery
DX: N39.0 Urinary tract infection, site not specified (principal); R73.9 Hyperglycemia, unspecified; Z01.818 Encounter for other preprocedural examination
CPT/HCPCS: 36415; 80048; 81001; 83036; 85027; 93005

== ENCOUNTER 2019-01-05 10:56 | Inpatient (IN) | payer MEDICARE, SELFPAY ==
[2018-05-15 15:13] VITALS: BMI 30.2
[2018-12-28 08:43] VITALS: BMI 30.5
[2019-01-05] VITALS (13 sets, daily range): BP systolic 89–150; BP diastolic 43–74; PULSE 72–83; RESP 14–20; TEMP 35.9–36.8; O2SAT 93–97; BMI 30.5
--- NOTE | 2019-01-05 | DI.RAD.S_ITS ---
PROCEDURE: XR PELVIS 1-2V INDICATIONS: INTER-OP TECHNIQUE: Intra-operative view of the pelvis and hip acquired. COMPARISON: None. FINDINGS: Bones: Intraoperative devices prior to placement of arthroplasty prostheses are in expected positions. No fractures or suspicious bony lesions. Soft tissues: Overlying surgical retractors are present, along with other intraoperative changes. IMPRESSION: Expected intraoperative appearance. Dictated by: Polo Dominguez M.D. on 01/05/2019 at 15:59 Approved by: Polo Dominguez M.D. on 01/05/2019 at 16:00
--- NOTE | 2019-01-05 06:00 | DI.RAD.S_ITS ---
PROCEDURE: XR HIP W PEL IF DONE LT 2V INDICATIONS: post operative left hip TECHNIQUE: 2 view(s) of the hip acquired. [facility] [place], XR PELVIS WITH BILATERAL LATERAL HIPS, 11/04/2018, 15:46. FINDINGS: Bones: Patient is status post interval left total hip arthroplasty, with hardware components in expected positions. The hip joint appears congruent. The visualized bony structures appear intact. Stable appearance of right total hip arthroplasty. Soft tissues: Overlying postoperative changes are noted. No suspicious soft tissue densities. IMPRESSION: Status post interval left total hip arthroplasty without acute hardware complication. Stable appearance of right total hip arthroplasty. Dictated by: Aiden Cornejo M.D. on 01/05/2019 at 17:58 Approved by: Aiden Cornejo M.D. on 01/05/2019 at 18:00
[2019-01-05] MEDS: ACETAMINOPHEN 325 MG TABLET 975 MG PO ×2 (12:16→20:38)
[2019-01-05] MEDS: CELECOXIB 200 MG CAPSULE PO (12:16)
[2019-01-05] MEDS: PREGABALIN 75 MG CAPSULE PO (12:16)
[2019-01-05] MEDS: VANCOMYCIN 1,000 MG/200 ML FROZ.PIGGY 200 MG IV (13:49)
--- NOTE | 2019-01-05 14:35 | PM.PREOP ---
Pre-operative Note Interval Note History & Physical reviewed/Exam performed by Physician: Yes Changes to H&P: No
--- NOTE | 2019-01-05 14:36 | PM.OP.1 ---
Operative Date/Time/Diagnoses Date of procedure: 01/05/19 Time of procedure: 14:36 Pre-op diagnosis: left hip OA Post-op diagnosis: same Procedure & Clinicians Procedure: Left total hip arthroplasty Same procedure as scheduled: Yes Indications: The patient has had progressively worsening left hip pain with radiographic changes consistent with arthritis. Non-operative management has failed and the patient has requested total hip replacement. The risks, benefits and alternatives to surgery were discussed with the patient prior to proceeding. Risks discussed included, but were not limited to, failure to relieve pain, leg length discrepancy, dislocation, stiffness, infection, nerve damage, deep venous thrombosis, pulmonary embolism, stroke, coma, heart attack, permanent paralysis and , as well as the potential need for eventual revision of the prosthetic. Surgeon: Emily Basurto Social Science Research Assistant: Mirta Batres Anesthesia Type: General and Spinal Operative Notes Findings: Severe left hip osteoarthritis, good stability Closure Type: primary Specimen(s): none sent Prosthetic devices, grafts, tissues, transplants, or devices: Basurto and Nephew 54 mm R3, size 8 standard offset anthology, 36 by -3 Oxinium head Applied: drain(s) Estimated Blood Loss (mL): 250 Blood products transfused: none Procedure in detail: The patient was seen in the pre-operative area, where the patient identified the left hip as the operative site and this was marked with my initials. The patient received pre-operative antibiotics and was taken to the operating room and placed on the operative table in the right lateral decubitus position after satisfactory anesthesia. A real time operator out was performed. The left leg was prepared from the ankle to the iliac crest with ChloroPrep in the usual fashion and draped through sterile drapes. The hip was approached through an approximately 20 cm incision centered over the greater trochanter and curving gently posteriorly as it went proximally. This was carried sharply to the fascia tasneem, which was divided and retracted with a self retaining retractor. The trochanteric bursa was excised with care being taken to avoid the sciatic nerve, which was identified and protected throughout the case. The short external rotators were incised and the capsulomuscular flap was raised and tagged for later repair. The hip was dislocated, and a femoral neck osteotomy performed approximately 15 mm above the lesser trochanter. Retractors were placed around the femur. The canal was opened with a box cutting osteotome, followed by a T handled reamer and a lateralizing reamer. The chili pepper broach was then used, followed by sequential broaching until there was good stability of the broach in the femur. Retractors were placed to expose the acetabulum. The labrum and central soft tissues were removed. Reaming was performed initially going up in 2 mm increments, then 1 mm increments until good bite was obtained with an odd sized reamer. The cup 1 mm larger than the last reamer was then inserted using the appropriate anteversion guides. A trial neutral liner was placed. The broach was placed in the canal. A trial head and neck were then placed and the hip relocated and checked for leg length and stability. We had to wait for sterilization of the femoral neck we took 3 intraoperative x-rays to get a sense of the stem and the cup prior to having all of the trial components available. An intraoperative film confirmed the component position and no evidence of fracture. The patient was stable in the position of sleep, of squatting, and could be put through a range of motion with 45 degrees internal rotation without dislocation. At 90 degrees flexion, internal rotation to 70 ? was possible before dislocation. This was felt to be satisfactory and the appropriate components were opened, and the trials were removed. The acetabular liner was impacted into position. The final stem was then impacted into the prepared femoral canal. A brief Betadine soak was performed while trialing with head options. The hip was meticulously irrigated with normal saline. Finally the femoral head was impacted onto the stem. The acetabulum was cleared of all material and the hip relocated one final time. The capsulomuscular flap was then repaired to the greater trochanter though an awl hole using the tag sutures. The short external rotators were repaired with a nonabsorbable suture. A deep drain was placed and brought out anteriorly. The fascia tasneem was closed with Vicryl. The subcutaneous layer was closed with barbed sutures and SteriStrips. An Aquacel Ag dressing was applied and the patient was taken to recovery having tolerated the procedure well. Complications: none Condition: stable Disposition: Acute Care Plan for aftercare: The patient will be maintained on a standard total hip replacement protocol with weight bearing as tolerated and posterior hip precautions. The patient will receive Aspirin and sequential compression devices for DVT prophylaxis. The patient will be discharged home when safe for the home environment.
[2019-01-05] MEDS: CEFAZOLIN 2 GM/100 ML FROZ.PIGGY IV ×2 (14:50→22:35)
[2019-01-05] MEDS: BUPIVACAINE 0.25% W/ EPI 30 ML VIAL 60 ML INJ (15:15)
[2019-01-05] MEDS: BUPIVACAINE LIPOSOME 266 MG/20 ML VIAL INJ (15:15)
[2019-01-05] MEDS: TRANEXAMIC ACID 1,000 MG VIAL 1000 MG INJ (15:15)
[2019-01-05] MEDS: SODIUM CHLORIDE IRRIG SOLUTION 250 ML, EPINEPHrine 1 MG IRR (15:16)
[2019-01-05] MEDS: POVIDONE-IODINE 15 ML, SODIUM CHLORIDE 0.9% 250 ML TOP (15:17)
--- NOTE | 2019-01-05 15:22 | SUR.OPER ---
Lateral on padded OR bed. Gel axillary roll. Arms secured on padded armboard with pillow supporting top arm. Padded hip positioner braces x4 - anterior and posterior chest and pelvis. Additional gel pad used anterior pelvis. Gel pad under bottom leg from knee to foot and secured with tape over sheet.
--- NOTE | 2019-01-05 17:37 | SUR.PHASEI ---
LR was not documented in OCT 999 cc infused in or/PACU - see I&O log
[2019-01-05] MEDS: LACTATED RINGERS 1,000 ML 125 ML IV (18:26)
[2019-01-05] MEDS: TRAZODONE 50 MG TABLET PO (20:39)
[2019-01-05] MEDS: ASPIRIN EC 81 MG TABLET PO (20:39)
[2019-01-05] MEDS: ATORVASTATIN 20 MG TABLET 40 MG PO (20:39)
[2019-01-05] MEDS: DOCUSATE 100 MG CAPSULE PO (20:39)
[2019-01-05] MEDS: OXYCODONE IR 5 MG TABLET PO (21:34)
--- NOTE | 2019-01-05 23:25 | PC.NURSE ---
1800- pt arrived rto room 223 from PACU via bed. A/O x3, Left hip aquacell CDI, HV site tegaderm CDI, PP+, CMS+. 97% 2L nc, LS clear. BT+ denies nausea. BSC to void clear yellow urine with 1PA FWW. RFA LR @ 125. Tolerated reg dinner. Bed alarm on for safety.
[2019-01-06] MEDS: HYDROMORPHONE 2 MG TABLET PO ×5 (00:27→16:42)
[2019-01-06] MEDS: LACTATED RINGERS 1,000 ML 125 ML IV (03:16)
[2019-01-06 05:04] VITALS: BP 135/73; PULSE 74; RESP 19; TEMP 36.4; O2SAT 94
[2019-01-06 05:44] LABS: Hematocrit 35.8 % (36-46); Hemoglobin 12.1 g/dL (12.0-16.0)
[2019-01-06] MEDS: CEFAZOLIN 2 GM/100 ML FROZ.PIGGY IV (06:22)
[2019-01-06 07:48] VITALS: BP 130/62; PULSE 72; RESP 16; TEMP 36.1; O2SAT 94
[2019-01-06] MEDS: POTASSIUM CHLORIDE 10 MEQ TAB PO (08:58)
[2019-01-06] MEDS: TRIAMTERENE/HCTZ 37.5/25 TABLET 1 CAP PO (08:58)
[2019-01-06] MEDS: DOCUSATE 100 MG CAPSULE PO (08:58)
[2019-01-06] MEDS: CITALOPRAM 20 MG TABLET 40 MG PO (08:59)
[2019-01-06] MEDS: ASPIRIN EC 81 MG TABLET PO (08:59)
[2019-01-06] MEDS: ACETAMINOPHEN 325 MG TABLET 975 MG PO (09:00)
--- NOTE | 2019-01-06 09:09 | P.DS_ITS ---
History of Present Illness Date Patient Seen: 01/06/19 Time Patient Seen: 09:07 Chief complaint: [id number] Left Total Hip Arthroplasty Narrative: Patient's pain is moderate to severe. History of total knee arthroplasty which she required Dilaudid as oxycodone did not work well for her. Denies fever chills. No nausea vomiting. She does have assistance at home. She would like to go home today if safe to do so. Otherwise without complaints. Discharge Providers Date of admission: 01/05/19 10:56 Discharge Date: 01/06/19 Primary care physician: Maylin Bautista Consults: 01/05/19 06:00 Consult to Anesthesiology Routine Comment: Consulting Provider: Anesthesiologist Reason for consultation: Regional block for post operative pain control 01/05/19 18:05 Consult to Discharge Planning Routine Comment: Consult to Physical Therapy Evaluate & Treat Comment: Physician Instructions: post op HILDA protocol Consult to Respiratory Therapy Evaluate & Treat Comment: Physician Instructions: Evaluate and treat Discharge provider: Flaquito Bautista PA-C Summary Discharge Diagnosis: Status post left total hip arthroplasty Hospital Course: Left total hip arthroplasty Same procedure as scheduled: Yes Indications: The patient has had progressively worsening left hip pain with radiographic changes consistent with arthritis. Non-operative management has failed and the patient has requested total hip replacement. The risks, benefits and alternatives to surgery were discussed with the patient prior to proceeding. Risks discussed included, but were not limited to, failure to relieve pain, leg length discrepancy, dislocation, stiffness, infection, nerve damage, deep venous thrombosis, pulmonary embolism, stroke, coma, heart attack, permanent paralysis and , as well as the potential need for eventual revision of the prosthetic. Surgeon: Emily Basurto Public Health Analyst: Mirta Batrse Anesthesia Type: General and Spinal Operative Notes Findings: Severe left hip osteoarthritis, good stability Closure Type: primary Specimen(s): none sent Prosthetic devices, grafts, tissues, transplants, or devices: Basurto and Nephew 54 mm R3, size 8 standard offset anthology, 36 by -3 Oxinium head Applied: drain(s) Estimated Blood Loss (mL): 250 Blood products transfused: none Status at Discharge Cognitive/behavioral status at discharge: at baseline, oriented Functional status at discharge: uses cane/walker Overall status at discharge: patient is progressing back to baseline Time Spent with Patient Less than 30 minutes Exam Vital Signs (past 8 hours): - 01/06/19 05:04 01/06/19 07:48 Temperature 97.5 F L 97.0 F L Pulse Rate 74 72 Respiratory Rate 19 16 Blood Pressure 135/73 130/62 Pulse Oximetry 94 94 Oxygen Delivery Method Room Air Oxygen Flow Rate 2 Narrative Exam Narrative: 73-year-old female resting comfortably in bed in no apparent distress. Left hip dressing is clean, dry and intact. Motor functions intact to the distal left lower extremity. Sensation grossly intact light touch distal left lower extremity. Left leg is warm and dry. Objective Labs Result Diagrams: 01/06/19 04:55 Labs: Laboratory Results - last 24 hr 01/06/19 04:55 Hgb 12.1 Hct 35.8 L Discharge Plan Discharge Plan Patient Disposition: Home Discharge comment: DC home today after PT Discharge Med Rec/Prescriptions Prescriptions: New hydromorphone 2 mg Tablet 2 mg PO Q3H PRN (Reason: Pain, Moderate (4-6)) Qty: 30 RF: 0 Continued atorvastatin 40 mg Tablet 40 mg PO BEDTIME RF: 0 potassium chloride 10 mEq Capsule, Extended Release 10 meq PO DAILY RF: 0 citalopram 40 mg Tablet 40 mg PO DAILY RF: 0 trazodone 50 mg Tablet 50 mg PO BEDTIME RF: 0 ranitidine HCl 150 mg Capsule 150 mg PO BID RF: 0 triamterene-hydrochlorothiazid 75-50 mg Tablet 1 tab PO QAM RF: 0 Changed aspirin 81 mg Tablet,Delayed Release (Dr/Ec) 81 mg PO BID Qty: 0 RF: 0 Discontinued ibuprofen 200 mg Tablet 200 mg PO DAILY PRN (Reason: pain) RF: 0 Follow up/Referrals: Maylin Bautista [Primary Care Provider] - Emily Basurto MD [Physician] - 1 Week Provider Discharge Instructions Diet: Diet as Tolerated Activity: Weightbearing as tolerated, posterior hip precautions Cold/Heat Therapy: Apply ice to the affected area as needed Other treatments: Aspirin 81 mg b.i.d., meloxicam 1 tab daily, hydroxyzine as needed for nausea and muscle spasms, oxycodone as needed for moderate pain, Dilaudid as needed for severe pain Skin/Wound/Dressing Care Report to your healthcare provider any signs of infection, such as:: chills, fever, increased pain, unusual drainage and unusual redness Dressing: Keep clean and dry Discharge Data Primary Care Provider: Maylin Bautista Attending Provider: Emily Basurto Admit Date/Time: 01/05/19 10:56
--- NOTE | 2019-01-06 09:25 | PT.IIE ---
Current Diagnoses Unilateral primary osteoarthritis, left hip (01/05/19) Surgery Performed Operation Date: 01/05/19 13:45 Actual Procedures p Total Hip Arthroplasty(Left) - Emily Basurto MD Surgical History (Last Updated 12/29/18 @ 14:10 by Ewelina Andersen, RN) History of arthroplasty of right knee (Acute 05/15/18) History of colonoscopy (Acute) History of total right hip arthroplasty (Acute ~2016) Medical History (Last Updated 04/30/18 @ 14:20 by Ewelina Andersen RN) Anxiety (Acute) Arthritis (Acute) Asthma (Acute) GERD (gastroesophageal reflux disease) (Acute) HTN (hypertension) (Acute) Heart murmur (Acute) Hyperlipidemia (Acute) Migraines (Acute) Physical Therapy Inpatient Evaluation/Re-Eval M1 PT/OT-IP Prior Functional Status Start: 01/06/19 12:33 Freq: NEEDED Status: Active Protocol: Document 01/06/19 09:25 AB (Rec: 01/06/19 12:46 AB [id number]) Medical Review Prior Functional Status Medical History Reviewed Yes Communication able to make needs known Mobility and Gait pt stated that she is modified independent with all mobilities and ambulation without AD but occasionally uses a SPC depending on hip pain Social History Household Members none Living Arrangements House Number of Floors (Floors) One Floor Number of Stairs To Enter/Railing? 3 steps to enter with R rail ascending Home Environment High Toilet Walk in Shower Home Equipment Front Wheel Walker Four Wheel Walker Straight Cane Bedside Commode Shower Seat without Backrest Hand Held Shower Telephone Repairer Grab Bars In Shower Additional Social History Comment stated that her boyfriend will stay with her for ~ 1 week to assist her M2 PT-IP Current Condition Start: 01/06/19 12:33 Freq: NEEDED Status: Active Protocol: Document 01/06/19 09:25 AB (Rec: 01/06/19 12:46 AB [id number]) Physical Therapy Current Condition Current Condition Evaluation Date 01/06/19 Treatment Diagnosis s/p L HILDA posterior approach; difficulty in walking Onset Date 01/05/19 Precautions Posterior Hip Precautions No Hip Flexion > 90 degrees No Hip Internal Rotation No Hip Adduction Weight Bearing Status Weight Bearing Status Weight Bear as Tolerated M3 PT-IP Subjective Start: 01/06/19 12:33 Freq: NEEDED Status: Active Protocol: Document 01/06/19 09:25 AB (Rec: 01/06/19 12:46 AB [id number]) Subjective Physical Therapy Visit Type Type Initial Evaluation Visit Start Time 09:25 Visit Stop Time 10:20 Total Visit Minutes 55 Number of FITTER AND TURNER Visits 0 Physical Therapy Visit Comments Patient Comments pt agreeable to do PT; expressed concerns about going home Therapy Pain Assessment Pain When Pain Assessed At Rest Pain Present Pain Present Pain Reported Location Left Hip Intensity 3 Scale Used Numeric (1 - 10) Pain Management Techniques Apply Cold Re-positioning Timing of Activity with Medications M4 PT-IP Mobility and Gait Start: 01/06/19 12:33 Freq: NEEDED Status: Active Protocol: Document 01/06/19 09:25 AB (Rec: 01/06/19 12:46 AB [id number]) PT-Bed Mobility Assessment Supine to Sit Supine to Sit Standby Assistance Scooting Scooting to Edge of Bed Standby Assistance PT-Transfer Assessment Sit to and From Stand Sit to and from Stand Contact Guard Assistance 1 Person Assistance Use of Upper Extremities Equipment Transfer Assistive Device Gait Belt Front Wheeled Walker Orthotic/Prosthetic Devices or Brace: No Transfers Transfer Destination Chair Transfer Technique pt ambulated using FWW Transfer Ability Level of Assist Contact Guard Assistance Comments Mobility Comments pt ambulated from the bed to the chair using FWW CGA. required cues to maintain L hip posterior precautions. Gait Assessment Gait Gait Assistance Required: Contact Guard Assist Distance (Feet) 30 Able to Maintain Weight Bearing Status Yes During Gait Assistive Devices Assistive Device Gait Belt Front Wheeled Walker Orthotic/Prosthetic Devices or Brace: No Gait Deviations General Gait Pattern Antalgic Decreased Stride Length Decreased Feet Clearance Step-to Gait Factors Limiting Gait Function Factors Limiting Gait Function Decreased Activity Tolerance Decreased Strength Difficulty Following Directions Limited Range of Motion Pain Poor Balance Poor Safety Awareness Comments Gait Comments pt ambulated in room using FWW CGA ~ 30 ft. required cues to maintain hip precautions especially during turns. Stair Climbing Assessment Comments Stair Climbing Comments pt refused to do stairs this morning PT-Balance Assessment Sitting Balance and Reactions Static Sitting Balance Ability Good Dynamic Sitting Balance Ability Good Standing Balance and Reactions Static Standing Balance Ability Fair Dynamic Standing Balance Ability Fair Device Used FWW M5 PT-IP Objective Assessments Start: 01/06/19 12:33 Freq: NEEDED Status: Active Protocol: Document 01/06/19 09:25 AB (Rec: 01/06/19 12:46 AB [id number]) Orientation Orientation/Cognition Level of Alertness Alert Orientation Name Place Situation Language Function Ability No Deficits Noted Safety Awareness Decreased Safety Awareness Memory Description Short Term Impaired Gross Range of Motion Lower Extremity ROM Assessment Within Functional Limits Strength Lower Extremity Strength Assessment Left Impaired Hip 3+/5 Knee 3+/5 Coordination Assessment Gross Coordination Gross Coordination WNL Muscle Tone Muscle Tone WNL Yes M6 PT-IP Treatment Start: 01/06/19 12:33 Freq: NEEDED Status: Active Protocol: Document 01/06/19 09:25 AB (Rec: 01/06/19 12:46 AB [id number]) Physical Therapy Treatment Exercises Exercises Quad Sets Heel Slides Education Education Provided Precautions Weight Bearing Status Post-Op Packet Safety Other Treatments Other Treatment Performed pt educated regarding hip precautions; continues to require cues for hip precautions during mobility M7 PT-IP Assessment and Plan Start: 01/06/19 12:33 Freq: NEEDED Status: Active Protocol: Document 01/06/19 09:25 AB (Rec: 01/06/19 12:46 AB [id number]) PT Summary Assessment and Plan Potential Rehabilitation Potential Good Status of Condition at Evaluation Stable Summary Impairments Pain ROM Strength Balance Coordination Sensation Tone Cognition Bed Mobility Transfers Gait Activity Tolerance Assessment Summary pt requiring CGA with mobility and requires cues to maintain hip precautions. informed pt regarding doing caregiver training and pt agreed. will conduct caregiver training this afternoon. will also complete stair climbing training prior to d/c. pt stated that she did not attend the [facility] PT session and is not set up for outpt PT. informed pt regarding importance of doing outpt PT as soon as possible. informed porter sample case. Goals Bed Mobility Goal Independent Transfer Goal Independent Front Wheeled Walker Gait Goal Independent Front Wheel Walker Gait Distance 200 Other Goals up/down 3 steps with R rail ascending SBA Days to Meet Goals 3 Frequency of Treatment Frequency Of Treatment Twice a Day Treatment Plan Physical Therapy Treatment Plan Bed Mobility Training Transfer Training Gait Training Therapeutic Exercise Balance Retraining Post Op Education Discharge Planning Hot or Cold Pack Neuromuscular Re-ed Coordination Retraining Manual Therapy Other Recommendations and Next Treatment caregiver training, ambulation Focus , stair climbing Recommendations To Nursing Amount of Assist Needed 1 Person Assist Discharge Recommendations PT Discharge Recommendations Home with Assistance Outpatient PT
--- NOTE | 2019-01-06 10:22 | PC.NURSE ---
Pt given 1 dilaudid for increased pain. Pt has had good pain control with this medication. States that oxycodone does not work as well for her. Pt has an aquacel dressing to her l. hip that is cdi, She is getting out of bed with a one person assist and walker to the [facility]. Up in chair now. Denies numbness or tingling to lower extremities or hip area. Resting comfortably.
--- NOTE | 2019-01-06 11:35 | CM.IDA ---
Initial DCP Assessment Note: Pt is a 73 yo female, resident of [place], now POD#1 from left hip surgery w/ Dr Basurto . PCP: Maylin Bautista Payer: Medicare/[employer]ARP Reviewed chart, pt discussed in multidisciplinary rounds this morning. Therapy has cleared pt for return home w/family to assist and pt has planned for home, DC order from [facility] has already been initiated this morning. Met w/pt while PT Safia was finishing up her eval; Safia recommends pt get her bf Jake to come in this afternoon for cg training. Pt will complete stair training this afternoon as well. Pt somewhat hesitant about returning home this afternoon but feels she has all the DME and support needed for return home, either today or tomorrow, pending progress w/ PT. No needs expected from DC planning team although will remain available in case this changes today. SHAE Valle Discharge Planning/Care Management CM Discharge Assessment Start: 01/06/19 11:33 Freq: Status: Active Protocol: Document 01/06/19 11:33 MACHO (Rec: 01/06/19 11:35 MACHO [id number]) Discharge Planning Assessment Assigned Tetryl Nitrator Operator SHAE Griffin DPOA/Assigned Designee Name javier Cueto Contact Information [phone] Advance Directives? No: Declines further information History Provided By Patient Medical Record Prior Living Arrangements House Household Members family Type of transporation used prior to Drives own vehicle admit Independent with ADL's Yes Is patient alert and oriented? Yes Barriers to Discharge No Discharge Plan Home Transportation Arrangement Family or boyfriend can provide transport at d/c. Referrals Initiated None needed Whiteboard Updated in Patient Room with Yes name and ext. # of Tetryl Nitrator Operator
[2019-01-06 11:38] VITALS: BP 140/61; PULSE 77; RESP 16; O2SAT 96
--- NOTE | 2019-01-06 13:30 | PT.IPTN ---
Current Diagnoses Unilateral primary osteoarthritis, left hip (01/05/19) Surgery Performed Operation Date: 01/05/19 13:45 Actual Procedures p Total Hip Arthroplasty(Left) - Emily Basurto MD Physical Therapy Treatment Note M2 PT-IP Current Condition Start: 01/06/19 12:33 Freq: NEEDED Status: Active Protocol: Document 01/06/19 09:25 AB (Rec: 01/06/19 12:46 AB [id number]) Physical Therapy Current Condition Current Condition Evaluation Date 01/06/19 Treatment Diagnosis s/p L HILDA posterior approach; difficulty in walking Onset Date 01/05/19 Precautions Posterior Hip Precautions No Hip Flexion > 90 degrees No Hip Internal Rotation No Hip Adduction Weight Bearing Status Weight Bearing Status Weight Bear as Tolerated M3 PT-IP Subjective Start: 01/06/19 12:33 Freq: NEEDED Status: Active Protocol: Document 01/06/19 13:30 AB (Rec: 01/06/19 14:44 AB [id number]) Subjective Physical Therapy Visit Type Type Treatment Note Visit Start Time 13:30 Visit Stop Time 14:22 Total Visit Minutes 52 Number of PLAYERS CLUB REPRESENTATIVE Visits 0 Physical Therapy Visit Comments Patient Comments pt agreeable to do PT Therapy Pain Assessment Pain When Pain Assessed At Rest Pain Present Pain Present Pain Reported Location Left Hip Intensity 3 Scale Used Numeric (1 - 10) Pain Management Techniques Apply Cold Re-positioning Timing of Activity with Medications M4 PT-IP Mobility and Gait Start: 01/06/19 12:33 Freq: NEEDED Status: Active Protocol: Document 01/06/19 13:30 AB (Rec: 01/06/19 14:44 AB [id number]) PT-Bed Mobility Assessment Supine to Sit Supine to Sit Standby Assistance Sit to Supine Sit to Supine Standby Assistance Scooting Scooting to Edge of Bed Standby Assistance Scooting Up and Down in Bed Standby Assistance PT-Transfer Assessment Sit to and From Stand Sit to and from Stand Standby Assistance 1 Person Assistance Equipment Transfer Assistive Device Gait Belt Front Wheeled Walker Orthotic/Prosthetic Devices or Brace: No Transfers Transfer Destination Toilet Transfer Technique pt ambulated to the toilet using FWW Transfer Ability Level of Assist Standby Assistance 1 Person Assistance Use of Upper Extremities Comments Mobility Comments caregiver training conducted with pt and pt's boyfriend. reviewed hip precautions. educated pt's boyfriend on how to assist pt and when to cue pt for safety. Gait Assessment Gait Gait Assistance Required: Standby Assistance Distance (Feet) 150 Able to Maintain Weight Bearing Status Yes During Gait Assistive Devices Assistive Device Gait Belt Front Wheeled Walker Orthotic/Prosthetic Devices or Brace: No Gait Deviations General Gait Pattern Antalgic Decreased Stride Length Decreased Feet Clearance Factors Limiting Gait Function Factors Limiting Gait Function Decreased Activity Tolerance Decreased Strength Limited Range of Motion Pain Poor Balance Poor Safety Awareness Stair Climbing Assessment Evaluation Level of Assist On Stairs Contact Guard Assistance Devices Stair Climbing Assistive Devices Straight Cane Left Railing Right Railing Technique/Endurance Stair Climbing Direction Ascend and Descend Stair Climbing Technique Step to Step Number of Steps Climbed 3 Query Text: Stair Climbing Set # Repetitions (reps) 3 Comments Stair Climbing Comments pt initially completed up/down steps using bilateral rails CGA completed up/down steps using R rail ascending and L side cane CGA; caregiver training conducted. educated pt's BF on how to assist pt and counter demonstrated. BF was able to assist pt safely M5 PT-IP Objective Assessments Start: 01/06/19 12:33 Freq: NEEDED Status: Active Protocol: Document 01/06/19 09:25 AB (Rec: 01/06/19 12:46 AB [id number]) Orientation Orientation/Cognition Level of Alertness Alert Orientation Name Place Situation Language Function Ability No Deficits Noted Safety Awareness Decreased Safety Awareness Memory Description Short Term Impaired Gross Range of Motion Lower Extremity ROM Assessment Within Functional Limits Strength Lower Extremity Strength Assessment Left Impaired Hip 3+/5 Knee 3+/5 Coordination Assessment Gross Coordination Gross Coordination WNL Muscle Tone Muscle Tone WNL Yes M6 PT-IP Treatment Start: 01/06/19 12:33 Freq: NEEDED Status: Active Protocol: Document 01/06/19 13:30 AB (Rec: 01/06/19 14:44 AB [id number]) Physical Therapy Treatment Education Education Provided Precautions Weight Bearing Status Post-Op Packet Safety M7 PT-IP Assessment and Plan Start: 01/06/19 12:33 Freq: NEEDED Status: Active Protocol: Document 01/06/19 13:30 AB (Rec: 01/06/19 14:44 AB [id number]) PT Summary Assessment and Plan Potential Rehabilitation Potential Good Summary Impairments Pain ROM Strength Balance Coordination Bed Mobility Transfers Gait Activity Tolerance Progress Towards Goals Progressing Toward Goals Assessment Summary caregiver training conducted and pt's boyfriend was able to assist pt safely. pt may go home when medically stable. Goals Bed Mobility Goal Independent Transfer Goal Independent Front Wheeled Walker Gait Goal Independent Front Wheel Walker Gait Distance 200 Other Goals up/down 3 steps with R rail ascending SBA Days to Meet Goals 3 Frequency of Treatment Frequency Of Treatment Twice a Day Treatment Plan Physical Therapy Treatment Plan Bed Mobility Training Transfer Training Gait Training Therapeutic Exercise Balance Retraining Post Op Education Discharge Planning Hot or Cold Pack Neuromuscular Re-ed Coordination Retraining Manual Therapy Other Recommendations and Next Treatment caregiver training, ambulation Focus , stair climbing Recommendations To Nursing Amount of Assist Needed 1 Person Assist Discharge Recommendations PT Discharge Recommendations Home with Assistance Outpatient PT
[2019-01-06 16:08] VITALS: BP 135/62; PULSE 76; RESP 18; TEMP 36.6; O2SAT 92
--- NOTE | 2019-01-06 16:34 | PC.NURSE ---
Sujey shift note: Patient awake and alert, per PT patient is stable for discharge and will go home with significant other. Disposition is home with outpatient Physical Therapy. Patient discharged per PA instructions. Patient verbalized understanding of discharge instructions, including F/U, medications, dressing care, and s/sx of infection. Home via private vehicle.
== END 2019-01-06 17:00 | disposition home or self-care (01) | DRG 470 ==
PROVIDERS: Admitting Provider Orthopaedic Surgery; PCP Physician Assistant Medical; Visit Provider Orthopaedic Surgery
PROC: 0SRB0JZ Replacement of Left Hip Joint with Synthetic Substitute, Open Approach (ICD-10-PCS; CPT 27130; principal; 2019-01-05 13:45)
DX: M16.12 Unilateral primary osteoarthritis, left hip (principal); Z96.641 Presence of right artificial hip joint; I10 Essential (primary) hypertension; E11.9 Type 2 diabetes mellitus without complications; F32.9 Major depressive disorder, single episode, unspecified; Z96.651 Presence of right artificial knee joint
CPT/HCPCS: 36415; 72170; 73502; 85014; 85018; 94760; 97116; 97161; 97530; C1776; C9290; J0171; J0690; J1100; J2250; J2405; J2704; J3370

== ENCOUNTER → 2019-07-16 13:41 | Outpatient (CLI) | payer MEDICARE, SELFPAY ==
[2019-01-05 18:06] VITALS: BMI 30.5
--- NOTE | 2019-07-16 | DI.MRI.S_ITS ---
PROCEDURE: MR KNEE LT WO CON INDICATIONS: Unilateral primary osteoarthritis, left knee TECHNIQUE: Noncontrast sagittal PD fast spin echo and T2 fast spin echo with fat saturation, sagittal 3-D FLASH with fat saturation; coronal T1 spin echo and PD fast spin echo with fat saturation, and axial PD fast spin echo with fat saturation through the knee. COMPARISON: [facility] [place], [place], XR KNEE ARTHRITIC SERIES BI, 11/04/2018, 15:40. FINDINGS: Image quality: Excellent. Menisci: There is medial extrusion of the medial meniscus. There is moderate irregular complex tearing of the posterior horn medial meniscus. There is degenerative fraying of the free edge of the medial meniscal body and anterior horn. Radial tearing of the free edge of the lateral meniscal body is present. The Cruciate ligaments: The anterior and posterior cruciate ligaments appear intact. Medial structures: The medial collateral ligament appears intact. Visualized portions of the pes anserinus tendons appear normal. No abnormal bursal fluid. Lateral structures: Moderate T2 signal elevation within the lateral collateral ligament at the femoral origin is present. The popliteus tendon appears normal. Iliotibial band appears normal. Anterior structures: The quadriceps and patellar tendons appear intact. Patellar alignment is normal. No femoral trochlear dysplasia or ventral trochlear prominence. No edema in the infrapatellar fat pad. Bones and cartilage: No bone marrow contusions or fractures. There is severe tricompartmental periarticular osteophyte formation. There are mild scattered regions of subchondral marrow edema within the weightbearing aspects of the medial femoral condyle, medial tibial plateau, lateral femoral condyle and lateral tibial plateau. Severe diffuse articular cartilage loss overlies the weightbearing aspects of the medial femoral condyle and medial tibial plateau. Moderate articular cartilage loss diffusely overlies the weightbearing aspects of the lateral femoral condyle and lateral tibial plateau. Moderate articular cartilage loss overlies the lateral patellar facet. Joint space: There is a small knee joint effusion. Trace Osman's cyst. Normal appearing synovial plicae are incidentally noted. IMPRESSION: 1. Tricompartment osteoarthritis with associated articular cartilage loss. 2. Medial and lateral meniscal tearing. 3. Partial thickness tear the lateral collateral ligament. 4. Small knee joint effusion trace Osman's cyst. Dictated by: Salty Pena M.D. on 07/16/2019 at 15:49 Approved by: Salty Pena M.D. on 07/16/2019 at 15:53
== END ==
PROVIDERS: PCP Physician Assistant Medical; Visit Provider Orthopaedic Surgery
DX: M17.12 Unilateral primary osteoarthritis, left knee (principal); S83.232A Complex tear of medial meniscus, current injury, left knee, initial encounter; S83.282A Other tear of lateral meniscus, current injury, left knee, initial encounter; S83.422A Sprain of lateral collateral ligament of left knee, initial encounter; M25.462 Effusion, left knee
CPT/HCPCS: 73721

== ENCOUNTER → 2019-09-09 16:41 | Outpatient (CLI) | payer MEDICARE, SELFPAY ==
[2019-01-05 18:06] VITALS: BMI 30.5
[2019-09-09 16:59] LABS: Bacteria Urine None Seen; RBC Urine None Seen (0-5/HPF)
[2019-09-09 17:40] LABS: Add Manual Diff / Slide Review NO; Basophils Absolute Auto 100 /uL (0-100); Basophils Percent Auto 0.6 % (0-2); Eosinophils Absolute Auto 200 /uL (0-450); Eosinophils Percent Auto 2.4 % (2-4); Hematocrit 40.6 % (36-46); Hemoglobin 14.1 g/dL (12.0-16.0); Lymphocytes Absolute Auto 2200 /uL (1100-4500); Lymphocytes Percent Auto 25.9 % (25-40); Mean Corpuscular HGB Conc 34.7 % (30-36); Mean Corpuscular Volume 89.1 fL (80-100); Monocytes Absolute Auto 700 /uL (0-900); Monocytes Percent Auto 7.6 % (3-14); Neutrophils Absolute Auto 5500 /uL (1500-7000); Neutrophils Percent Auto 63.5 % (50-75); Platelet Count 249 X10^3/uL (150-400); Red Blood Cell Count 4.56 X10^6/uL (4.0-5.2); Red Cell Distribution Width 13.4 % (11.6-14.8); White Blood Cell Count 8.6 X10^3/uL (4.5-11.0)
[2019-09-09 17:50] LABS: Blood Urea Nitrogen 22 mg/dL (7-17); Calcium 10.1 mg/dL (8.4-10.2); Carbon Dioxide 30 mmol/L (22-32); Chloride 99 mmol/L (98-107); Estimated Glomerular Filt Rate 48.7 mL/min (>60); Glucose 93 mg/dL (80-110); HEMOLYSIS < 15 (0-50); Potassium 4.2 mmol/L (3.4-5.1); Sodium 138 mmol/L (137-145)
[2019-09-09 17:55] LABS: Hemoglobin A1C% w Est Avg Glu 5.2 % (4.0-6.0)
[2019-09-09 18:09] LABS: Appearance Urine UA CLEAR; Bilirubin Urine UA NEGATIVE (NEGATIVE); Color Urine UA YELLOW; Glucose Urine UA NEGATIVE (Negative); Ketones Urine UA NEGATIVE (NEGATIVE); Leukocyte Esterase Urine UA NEGATIVE (NEGATIVE); Nitrite Urine UA NEGATIVE (Negative); Occult Blood Urine UA NEGATIVE (Negative); Protein Urine UA NEGATIVE (Negative); Urobilinogen Urine UA 0.2 E.U./dL (0.2)
[2019-09-09 18:10] LABS: pH Urine UA 6.5 (4.5-8.0)
[2019-09-09 18:17] LABS: Culture Indicated Urine Cult Not Indicated; Squamous Epithelial Cell Urine 0-1 /HPF (0-5/HPF); Urine Comments Microscopic Normal; WBC Urine 0-1/HPF (0-5/HPF)
== END ==
PROVIDERS: PCP Physician Assistant Medical; Referring Provider Physician Assistant Medical; Visit Provider Orthopaedic Surgery
DX: N39.0 Urinary tract infection, site not specified (principal); Z01.812 Encounter for preprocedural laboratory examination; R73.9 Hyperglycemia, unspecified
CPT/HCPCS: 36415; 80048; 81001; 83036; 85025

== ENCOUNTER 2019-09-30 08:28 | Day surgery (SDC) | payer MEDICARE, SELFPAY ==
[2019-01-05 18:06] VITALS: BMI 30.5
[2019-09-20 13:36] VITALS: BMI 30.4
[2019-09-30] VITALS (18 sets, daily range): BP systolic 89–145; BP diastolic 31–72; PULSE 53–89; RESP 10–18; TEMP 35.8–37; O2SAT 88–99; BMI 30.4
--- NOTE | 2019-09-30 06:00 | DI.RAD.S_ITS ---
PROCEDURE: XR KNEE LT 1TO2V INDICATIONS: post op left TKA TECHNIQUE: 2 view(s) of the knee acquired. COMPARISON: None. FINDINGS: Bones: Patient is status post knee joint arthroplasty. Hardware components are in expected positions. Visualized bony structures are intact. Soft tissues: Overlying postoperative changes are noted. IMPRESSION: Expected postsurgical changes. Dictated by: Sara Jimenez M.D. on 09/30/2019 at 14:32 Approved by: Sara Jimenez M.D. on 09/30/2019 at 14:32
[2019-09-30] MEDS: ACETAMINOPHEN 325 MG TABLET 975 MG PO (09:18)
[2019-09-30] MEDS: PREGABALIN 75 MG CAPSULE PO (09:18)
[2019-09-30] MEDS: CELECOXIB 200 MG CAPSULE PO (09:18)
[2019-09-30] MEDS: LACTATED RINGERS 1,000 ML 42 ML IV ×2 (09:19→13:19)
[2019-09-30] MEDS: VANCOMYCIN 1,000 MG/200 ML PIGGYBACK 200 MG IV (09:28)
--- NOTE | 2019-09-30 10:52 | P.OP_ITS ---
Operative Date/Time/Diagnoses Date of procedure: 09/30/19 Time of procedure: 10:59 Pre-op diagnosis: Severe left knee osteoarthritis Post-op diagnosis: same Procedure & Clinicians Procedure: Left total knee arthroplasty Same procedure as scheduled: Yes Indications: The patient has had progressively worsening left knee pain with radiographic changes consistent with arthritis. Non-operative management has failed and the patient has requested total knee replacement. The risks, benefits and alternatives to surgery were discussed with the patient prior to proceeding. Risks discussed included, but were not limited to, failure to relieve pain, stiffness, infection, nerve damage, deep venous thrombosis, pulmonary embolism, stroke, coma, heart attack, permanent paralysis and , as well as the potential need for eventual revision of the prosthetic. Surgeon: Emily Basurto Network Cable Installer: Flaquito Bautista Click Yes if Unassisted: Yes Anesthesia Type: General and Spinal Operative Notes Findings: Severe left knee osteoarthritis Closure Type: primary Specimen(s): none sent Prosthetic devices, grafts, tissues, transplants, or devices: Basurto and Nephew Journey BCS 2 size 4 femur, size 4 tibia, +10 poly, 35 x 7.5 mm patella Applied: drain(s) Estimated Blood Loss (mL): 250 Blood products transfused: none Tourniquet time (min): 66 Procedure in detail: The patient was seen in the pre-operative area, where the patient identified the left knee as the operative site and this was marked with my initials. The patient received pre-operative antibiotics, and was taken to the operating room and placed on the operative table in the supine position. After satisfactory anesthesia, a time analysis clerk out was performed. The left leg was encircled with a tourniquet about the proximal thigh, and the leg was prepared from the toes to the tourniquet with ChloroPrep in the usual fashion and draped through sterile drapes. The leg was elevated and exsanguinated with Eschmark bandage and the tourniquet inflated to [250] mmHg pressure. The knee was approached through an approximately 18 cm incision centered over the patella and carried into the knee through a medial parapatellar arthrotomy. A portion of the medial and lateral meniscus was resected. Soft tissue was carefully mobilized around the patella the patella was measured with a caliper. Bone was resected from the patella and the patellar height was reconstituted with up an appropriate sized patellar component. A cover was then placed on the patella. A small amount of additional medial and lateral meniscus was resected. The visionare guide fit well to the distal femur. It looked like an appropriate distal femoral cut and the cut was made without difficulty. The rotation was assessed and the appropriate size femoral guide was placed on the distal femur and finishing cuts were made. There was no evidence of notching. The anterior, posterior and chamfer cuts were then made. The posterior osteophytes and soft tissues were then removed. The posterior capsule was injected with part of a mixture of 60 ml 0.25% Marcaine mixed with 20 ml Exparel for post operative pain control. The remainder of this mixture was injected into the capsule and subcutaneous tissues during cement curing. The tibia was prepared and the visionaire guide fit well to the distal tibia. The rotation was assessed. The patient was placed in extension residual medial and lateral meniscus as well as any residual bone was carefully resected. [No] additional tibia was resected. Hemostasis was achieved especially posteriorly. Additional local was injected into the posterior capsule. The extension gap was assessed and additional releases for gap balancing were performed as necessary. It was checked with the gap recreation instructor. The femoral component was trial was placed and the notch was finished. Trial tibial and femoral components were then placed and the knee placed through a range of motion. Range of motion was [0-130], with good stability throughout the range. The trials were then removed, and the tibia was finished. The bone was prepared with pulsatile lavage, and dried with a sponge. Cement was applied and the final prosthetics placed. Excess cement was removed during and after cement curing. A brief Betadine soak was performed. After confirming there was no extruded cement posteriorly, the final tibial insert was placed. The knee was copiously irrigated and the tourniquet deflated. Hemostasis was obtained with the Bovie. A drain was placed and brought out superolaterally. The capsule was closed with interrupted # 1 black braided suture. The subcutaneous layer was closed with barbed sutures, and the skin with a running 3-0 V-Lock suture and Surgical glue. An Aquacel Ag dressing was applied and the patient was taken to recovery having tolerated the procedure well. Complications: none Post-operative Condition: stable Disposition: Acute Care Plan for aftercare: The patient will be maintained on a standard total knee replacement protocol with weight bearing as tolerated. The patient will receive aspirin and sequential compression devices for DVT prophylaxis. The patient will be discharged home when safe for the home environment.
--- NOTE | 2019-09-30 10:52 | PM.PREOP ---
Pre-operative Note Interval Note History & Physical reviewed/Exam performed by Physician: Yes Changes to H&P: No
[2019-09-30] MEDS: TRANEXAMIC ACID 1,000 MG VIAL 2000 MG INJ ×2 (11:04→12:24)
[2019-09-30] MEDS: CEFAZOLIN 2 GM/100 ML FROZ.PIGGY IV ×2 (11:08→18:51)
[2019-09-30] MEDS: BUPIVACAINE 0.25% W/ EPI 30 ML VIAL INJ (11:36)
[2019-09-30] MEDS: BUPIVACAINE LIPOSOME 266 MG/20 ML VIAL INJ (11:38)
[2019-09-30] MEDS: SODIUM CHLORIDE IRRIG SOLUTION 250 ML, POVIDONE-IODINE SPONGE STICKS 1 APPLIC IRR (11:38)
--- NOTE | 2019-09-30 14:44 | PC.NURSE ---
Message left with PACU, fax sent to surgery and voicemail left with Maryse VAN regarding lack of transfer/post op orders in place for acute care. Patient oriented to room and call light. VSS. Denies pain. Calf SCD's in place. Patient wiggling toes, skin pink and warm and palpable pedal pulses bilaterally. Aquacel with RITA wrap in place, with hemovac compressed and clamped. Order needed for when to unclamp drain- will follow. Call light within reach. Patient agrees to call for assistance. Her son is at bedside.
[2019-09-30] MEDS: LACTATED RINGERS 1,000 ML 125 ML IV (16:14)
[2019-09-30] MEDS: IBUPROFEN 400 MG TABLET PO ×2 (17:41→21:50)
[2019-09-30] MEDS: ACETAMINOPHEN 325 MG TABLET 650 MG PO (21:50)
[2019-09-30] MEDS: DOCUSATE 100 MG CAPSULE PO (21:50)
[2019-09-30] MEDS: ASPIRIN EC 81 MG TABLET PO (21:50)
[2019-09-30] MEDS: ATORVASTATIN 20 MG TABLET 40 MG PO (21:50)
[2019-09-30] MEDS: TRAZODONE 50 MG TABLET PO (21:50)
[2019-09-30] MEDS: raNITIdine 150 MG CAPSULE PO (21:51)
[2019-10-01 00:15] VITALS: BP 119/69; PULSE 68; RESP 16; TEMP 36.2; O2SAT 95
[2019-10-01] MEDS: IBUPROFEN 400 MG TABLET PO ×4 (00:15→12:58)
[2019-10-01] MEDS: CEFAZOLIN 2 GM/100 ML FROZ.PIGGY IV (02:14)
[2019-10-01 05:41] VITALS: O2SAT 95
[2019-10-01 06:04] VITALS: BP 111/53; PULSE 63; RESP 16; TEMP 36.8; O2SAT 95
[2019-10-01 07:06] LABS: Hematocrit 31.5 % (36-46); Hemoglobin 10.8 g/dL (12.0-16.0)
--- NOTE | 2019-10-01 07:44 | PM.PNPO.1 ---
Subjective Subjective Date Patient Seen: 10/01/19 Time Patient Seen: 07:44 Interval history: POD #1 s/p Left TKA with Dr. Basurto. Patient doing well. Patient taking Tylenol and ibuprofen for pain control. She is eating and voiding well. He has not been up with physical therapy yet. Exam Vital Signs (past 8 hours): - 10/01/19 00:15 10/01/19 05:41 10/01/19 06:04 Temperature 97.2 F L 98.2 F Pulse Rate 68 63 Respiratory Rate 16 16 Blood Pressure 119/69 111/53 L Pulse Oximetry 95 95 95 Oxygen Delivery Method Room Air Oxygen Flow Rate 0 Narrative Exam Narrative: Patient lying in bed in no acute distress. She is alert orient x3. Calves are soft, compressible, nontender bilaterally. Dorsalis pedis pulses are symmetrical. She is able actively dorsiflex and plantar flex. SCDs on and functioning. Sensation intact light touch throughout bilateral lower extremities. Objective Labs Result Diagrams: 10/01/19 06:50 Labs: Laboratory Results - last 24 hr 10/01/19 06:50 Hgb 10.8 L Hct 31.5 L Assessment & Plan Post-op Postoperative Procedures: Procedures Operation Date: 09/30/19 10:45 Actual Procedures Side Surgeon p Total Knee Arthroplasty Left Emily Basurto MD patient mobilized physical therapy today. Continue current pain control. The patient is mobilizing safely this morning with adequate pain control she can go home today.
[2019-10-01 08:00] VITALS: BP 113/53; PULSE 61; RESP 16; TEMP 36.2; O2SAT 99
--- NOTE | 2019-10-01 09:24 | PT.IIE ---
Current Diagnoses Unilateral primary osteoarthritis, left knee (09/30/19) Surgery Performed Operation Date: 09/30/19 10:45 Actual Procedures p Total Knee Arthroplasty(Left) - Emily Basurto MD Surgical History (Last Updated 09/20/19 @ 13:42 by Ewelina Andersen RN) History of arthroplasty of right knee (Acute 05/15/18) History of colonoscopy (Acute) History of total left hip arthroplasty (Acute 01/05/19) History of total right hip arthroplasty (Acute ~2015) Medical History (Last Updated 09/20/19 @ 13:42 by Ewelina Andersen RN) Anxiety (Acute) Arthritis (Acute) Asthma (Acute) GERD (gastroesophageal reflux disease) (Acute) Heart murmur (Acute) HTN (hypertension) (Acute) Hyperlipidemia (Acute) Migraines (Acute) Osteoarthritis (Acute) Physical Therapy Inpatient Evaluation/Re-Eval M1 PT/OT-IP Prior Functional Status Start: 10/01/19 08:36 Freq: NEEDED Status: Active Protocol: Document 10/01/19 08:43 (Rec: 10/01/19 09:24 [email or web address]) Medical Review Prior Functional Status Medical History Reviewed Yes Diet/Fluid Consistency Regular Communication able to make needs known. no deficited noted. Mobility and Gait Independent with mobility without AD. Likes to do yardwork at home. Pt stated she was ambulating with L knee bent Activities of Daily Living and IADL's independent with ADLs and IADLs without AD Social History Household Members family Living Arrangements House Number of Floors (Floors) One Floor Number of Stairs To Enter/Railing? 3 DANE w/ L rail Home Environment Standard Height Toilet,Walk in Shower Home Equipment Front Wheel Walker,Straight Cane,Raised Toilet Seat w/ Armrests,Shower Seat with Backrest,Hand Held Shower, Brake Liner,Grab Bars Near Toilet, Grab Bars In Shower Employment Status Retired Additional Social History Comment Pt lives with his 51yo son and 18yo grandson in [facility]. Pt had outpatient PT prior to surgery and planning to return there after hospitalization. Pt also had B HILDA and R TKA. M2 PT-IP Current Condition Start: 10/01/19 08:36 Freq: NEEDED Status: Active Protocol: Document 10/01/19 08:43 HH (Rec: 10/01/19 09:24 [email or web address]) Physical Therapy Current Condition Current Condition Evaluation Date 10/01/19 Treatment Diagnosis L TKA, difficulty in walking Onset Date 09/30/19 Weight Bearing Status Weight Bearing Status Weight Bear as Tolerated M3 PT-IP Subjective Start: 10/01/19 08:36 Freq: NEEDED Status: Active Protocol: Document 10/01/19 08:43 (Rec: 10/01/19 09:24 [email or web address]) Subjective Physical Therapy Visit Type Type Initial Evaluation Visit Start Time 08:43 Visit Stop Time 09:05 Total Visit Minutes 22 Number of CEMENT MASON Visits 0 Physical Therapy Visit Comments Patient Comments My pain is only at 1-2 and it feels great Patient Goals To return home with family Therapy Pain Assessment Pain When Pain Assessed During Mobility Pain Present Pain Present Pain Reported Location Left Knee Intensity 2 Scale Used Numeric (1 - 10) Description Aching Pain Management Techniques Apply Cold,Timing of Activity with Medications M4 PT-IP Mobility and Gait Start: 10/01/19 08:36 Freq: NEEDED Status: Active Protocol: Document 10/01/19 08:43 (Rec: 10/01/19 09:24 [email or web address]) PT-Bed Mobility Assessment Supine to Sit Supine to Sit Standby Assistance Scooting Scooting to Edge of Bed Standby Assistance PT-Transfer Assessment Sit to and From Stand Sit to and from Stand Standby Assistance,Use of Upper Extremities Equipment Transfer Assistive Device Gait Belt,Front Wheeled Walker Orthotic/Prosthetic Devices or Brace: No Transfers Transfer Destination Bed,Chair Transfer Technique Stand Step Pivot Transfer Ability Level of Assist Standby Assistance,Use of Upper Extremities Comments Mobility Comments Pt resting in bed upon assessment. Pt completed supine to long sit without using bedrails, SBA. She then pivot herself to L side EOB and able to scoot forward. Pt was able to perform heel slide up to 100 degrees and full knee extension. She then stood up with FWW SBA, along with even feet placement. Pt amb the entire AC unit with FWW SBA then returned to bedside chair with safe transfer and controlled descend. Call light placed within reach, pt denied increase in pain. Gait Assessment Gait Gait Assistance Required: Standby Assistance Distance (Feet) 320 Able to Maintain Weight Bearing Status Yes During Gait Assistive Devices Assistive Device Gait Belt,Front Wheeled Walker Orthotic/Prosthetic Devices or Brace: No Gait Deviations General Gait Pattern Antalgic,Decreased Stride Length,Decreased Feet Clearance Factors Limiting Gait Function Factors Limiting Gait Function Decreased Activity Tolerance, Decreased Strength,Limited Range of Motion,Pain Comments Gait Comments Pt amb with slight antalgic gait on L side but she was able to reach close to full knee extension during midstance who reports my knee can go further back now. Pt also demonstrates good heel strike on L and able to fully WB on it. She did not have increase in pain after amb. Stair Climbing Assessment Evaluation Level of Assist On Stairs Standby Assistance Devices Stair Climbing Assistive Devices Front Wheel Walker,Left Railing Technique/Endurance Stair Climbing Direction Ascend and Descend Stair Climbing Technique Step to Step Number of Steps Climbed 3 Query Text: Stair Climbing Set # Repetitions (reps) 2 PT-Balance Assessment Sitting Balance and Reactions Static Sitting Balance Ability Normal Dynamic Sitting Balance Ability Normal Standing Balance and Reactions Static Standing Balance Ability Normal Dynamic Standing Balance Ability Good Device Used FWW M5 PT-IP Objective Assessments Start: 10/01/19 08:36 Freq: NEEDED Status: Active Protocol: Document 10/01/19 08:43 (Rec: 10/01/19 09:24 [email or web address]) Orientation Orientation/Cognition Level of Alertness Alert Orientation Name,Age,Birthday,Month,Date, Year,Day of Week,Place, Situation Language Function Ability No Deficits Noted Safety Awareness Understands Safety Issues Memory Description No Deficits Noted Gross Range of Motion Upper Extremity ROM Assessment Within Functional Limits Lower Extremity ROM Assessment Left Impaired Impairments knee AROM 2-100 degrees Strength Upper Extremity Strength Assessment Within Functional Limits Lower Extremity Strength Assessment Left Impaired Hip 5/5 Knee 4/5 Ankle 5/5 Coordination Assessment Gross Coordination Gross Coordination WNL Sensation Assessment Sensation Gross Sensation WNL Muscle Tone Muscle Tone WNL Yes M6 PT-IP Treatment Start: 10/01/19 08:36 Freq: NEEDED Status: Active Protocol: Document 10/01/19 08:43 HH (Rec: 10/01/19 09:24 [email or web address]) Physical Therapy Treatment Exercises Exercises Ankle Pumps,Gluteal Sets,Quad Sets,Heel Slides Education Education Provided Precautions,Weight Bearing Status,Post-Op Packet,Safety M7 PT-IP Assessment and Plan Start: 10/01/19 08:36 Freq: NEEDED Status: Active Protocol: Document 10/01/19 08:43 HH (Rec: 10/01/19 09:24 [email or web address]) PT Summary Assessment and Plan Potential Rehabilitation Potential Excellent Status of Condition at Evaluation Stable Summary Progress Towards Goals Safe For Discharge Assessment Summary This is a low complexity evaluation for this 74yo female s/p POD L TKA. Upon assessment, pt demonstrates very good mobility with overall SBA. She was able to amb the entire AC unit and completed stair climbing with L rail. Pt had multiple joint replacements that she is very well aware of her post op exercises and post op precautions. She also has adequate DMEs at home so she will be safe to d/c home with family assistance followed by outpatient PT to improve mobility and stregnth. Frequency of Treatment Frequency Of Treatment Discharge Recommendations To Nursing Amount of Assist Needed Standby Assistance Discharge Recommendations PT Discharge Recommendations Home with Assistance, Outpatient PT Transportation Needs at Discharge Private Vehicle
[2019-10-01] MEDS: TRIAMTERENE/HCTZ 37.5/25 TABLET 1 CAP PO (09:26)
[2019-10-01] MEDS: CITALOPRAM 20 MG TABLET 40 MG PO (09:26)
[2019-10-01] MEDS: POTASSIUM CHLORIDE 10 MEQ TAB PO (09:26)
[2019-10-01] MEDS: ACETAMINOPHEN 325 MG TABLET 650 MG PO (09:27)
[2019-10-01] MEDS: ASPIRIN EC 81 MG TABLET PO (09:28)
[2019-10-01] MEDS: raNITIdine 150 MG CAPSULE PO (09:28)
[2019-10-01] MEDS: DOCUSATE 100 MG CAPSULE PO (09:28)
[2019-10-01] MEDS: SODIUM CHLORIDE 0.9% FLUSH 10 ML IV (09:30)
[2019-10-01] MEDS: OXYCODONE IR 5 MG TABLET PO (13:00)
--- NOTE | 2019-10-01 15:46 | PC.NURSE ---
Day Shift- Hemovac drain removed at 0945 without difficulty. 2X2 gauze and tegaderm applied, pressure over site held. Site continued to bleed, changed to folded 4X4 gauze and tegaderm and bleeding stopped with 2 mins of pressure. Left knee aquacel dressing CDI. CMS+, pt performing ankle pump exercises. Encouraged Incentive spirometer use. Pain controlled with scheduled Acetaminophen, Ibuprofen and PRN Oxycodone given X1 at 1300 prior to discharge. Left knee pain reported as 1-10/18. Discharge summary packet reviewed with pt from [id number] with pt and her Son Felix. Pt aware of post op appointment, no further voiced concerns. States has all belongings. Pt left unit via wheelchair at 1445 in no distress with GIS SCIENTIST escort. Pt's son present to drive pt home.
--- NOTE | 2019-10-01 16:08 | CM.DANOTE ---
Discharge Planning/Care Management CM Discharge Assessment Start: 10/01/19 16:07 Freq: Status: Active Protocol: Document 10/01/19 16:07 ITV (Rec: 10/01/19 16:08 ITV [id number]) Discharge Planning Assessment Advance Directives? No: Declines further information History Provided By Medical Record Prior Living Arrangements House Household Members family Review Status In Process Pre-Anesthesia Assessment Start: 09/20/19 13:36 Freq: Status: Complete Protocol: Document 09/20/19 13:36 CAB (Rec: 09/20/19 14:17 CAB [id number]) Pre-Anesthesia Assessment Patient Information Reviewed Via Phone Assessment Assessment Completed With Patient Diagnostic Results BMP/CMP,CBC Comment Labs only @ 09/09/19 - drop in eGFR, rise in Cr. EKG @ 12/07/18 Primary Care Provider Maylin Bautista Seen Specialist in Last 12 Months Yes Specialist Seen Orthopedist Primary Language Jordanian Preferred Language Jordanian Pit Recorder Required No Height 162.56 cm Weight 80.286 kg Body Mass Index (BMI) 30.4 Hearing Ability Normal Visual Assist Glasses Dentition Type Teeth, Natural Present,Teeth, Missing Barriers to Learning Age related,Auditory,Memory Hx Anesthesia Reactions Yes: Nausea following colonoscopy Hx Family Anesthesia Reaction No Hx Malignant Hyperthermia No Hx Blood Transfusions No Anesthesia Review Requested No Provider Relations Specialist No alcohol intake current alcohol intake frequency a few times a week Smoking Status Never smoker Substance Use Type does not use Pain Present Pain Reported Musculoskeletal Symptoms Abnormal Gait,Difficulty Walking,Joint Pain,Limited Range of Motion History of Falling (Recent or History of No ) Patient is completely paralyzed or No completely immobile Mental Status Oriented to own ability Is patient on oxygen? No Does patient have COLLAZO/SOB Yes: Sporadic, intermittent, I cough a lot Hx Sleep Apnea No CPAP/BIPAP use not prescribed Suspected Sleep Apnea No Currently Taking a Beta Adia No Can You Climb a Flight of Stairs Without No: r/t pain SOB Hx Chest Pain No Hx SOB Yes: Sporadic, intermittent, I cough a lot Hx Syncope or Dizziness No Anti-Coagulant Therapy No Has a Salt Plant Operator No Cardiac Testing No Hx Pacemaker/ICD No Pacemaker Rep Required? No Cardiac Clearance Received Not Applicable Diet Type At Home Regular dysphagia No Urinary Catheter Present No Hx Urinary Self Catheterization No Diabetes No HgbA1C 5.2 Date 09/09/19 Patient No Lactating No Hx Drug Resistant Organism No Presence of External or Internal Medical Yes: Bilat hip, right knee Devices prosthesis Have you traveled outside the [place] in the last 30 days? Marital Status Lives With family Prior Living Arrangements House Number of Floors (Floors) One Floor Number of Stairs To Enter/Railing? 3 steps, railing present Support System Child/Children,Family Does the Patient Have Assistance After Yes Surgery Patient Discharge Plan Description Return Home Comment Pt advised overnight length of stay per surgeon Feels Safe in Current Environment Yes Been Physically Hurt or Threatened By a No Person in Current Environment Do you have thoughts of harming yourself None or others? Are you currently considering suicide? No Do you have a plan to hurt yourself or No Plan others? Do You Have Any Spiritual Beliefs That No May Affect Your HC Choices? Do You Have Any Cultural Practices That No May Affect Your HC Choices? Spiritual Referral None Who Can We Speak to About Patient's Care Family, friends Identifying Code for Release of Patient Declines to issue Information Health Care Proxy/Next of Kin Jeremy Washington (sons) Health Care Proxy Phone Number Jeremy: [phone] Felix: [phone] Emergency Contact Name Jeremy Washington (sons) or Jake ( friend) Emergency Contact Phone Number Jeremy: [phone] Felix: Jake: [phone] Advance Directives? No: Declines further information Power of Brine Room Laborer No PAC Instructions Do not shave/clip surgical site,Durable medical equipment ,Medications to take/avoid, Nasal antibiotic,No ETOH/ petroleum product on skin DOS, NPO,Post-op transportation,Pre -surgical wash,Sturdy shoes/ comfortable clothes,Do not bring valuables and remove jewelry
--- NOTE | 2019-10-01 16:09 | CM.DANOTE ---
Addendum entered by Marii Hutson LPN 10/01/19 16:15: Per PT note: for today pt plans outpt PT therapy and will follow up with ortho clinic as per their protocol. Original Note: Discharge Planning/Care Management DCP: assessment: case received and discussed in Team Rounds. PT was to see pt today. EMR reviewed later in the day. Pt is a 74 year old female who admitted yesterday for a planned L TKA Admission status: SDC: confirmed by UR SHARYN Blackmon. Payer: Medicare and [employer]. Pt spoke with preop SHARYN CORREA on 09/20 and identified her post hospital plan as home with support of her sons Jeremy and Felix. Ortho PA team did see pt and ok'd pt for d/c to her home in [place] today. PT cleared her for same.j A check in now shows that pt did d/c this afternoon in company of her son Felix. No concerns re the d/c for today were identified by the care team members. CM Discharge Assessment Start: 10/01/19 16:07 Freq: Status: Active Protocol: Document 10/01/19 16:07 ITV (Rec: 10/01/19 16:08 ITV [id number]) Discharge Planning Assessment Advance Directives? No: Declines further information History Provided By Medical Record Prior Living Arrangements House Household Members family Review Status In Process Pre-Anesthesia Assessment Start: 09/20/19 13:36 Freq: Status: Complete Protocol: Document 09/20/19 13:36 CAB (Rec: 09/20/19 14:17 CAB [id number]) Pre-Anesthesia Assessment Patient Information Reviewed Via Phone Assessment Assessment Completed With Patient Diagnostic Results BMP/CMP,CBC Comment Labs only @ 09/09/19 - drop in eGFR, rise in Cr. EKG @ 12/07/18 Primary Care Provider Maylin Bautista Seen Specialist in Last 12 Months Yes Specialist Seen Orthopedist Primary Language Austrian Preferred Language Austrian Work Over Rig Operator Required No Height 162.56 cm Weight 80.286 kg Body Mass Index (BMI) 30.4 Hearing Ability Normal Visual Assist Glasses Dentition Type Teeth, Natural Present,Teeth, Missing Barriers to Learning Age related,Auditory,Memory Hx Anesthesia Reactions Yes: Nausea following colonoscopy Hx Family Anesthesia Reaction No Hx Malignant Hyperthermia No Hx Blood Transfusions No Anesthesia Review Requested No Inseminator No alcohol intake current alcohol intake frequency a few times a week Smoking Status Never smoker Substance Use Type does not use Pain Present Pain Reported Musculoskeletal Symptoms Abnormal Gait,Difficulty Walking,Joint Pain,Limited Range of Motion History of Falling (Recent or History of No ) Patient is completely paralyzed or No completely immobile Mental Status Oriented to own ability Is patient on oxygen? No Does patient have COLLAZO/SOB Yes: Sporadic, intermittent, I cough a lot Hx Sleep Apnea No CPAP/BIPAP use not prescribed Suspected Sleep Apnea No Currently Taking a Beta Adia No Can You Climb a Flight of Stairs Without No: r/t pain SOB Hx Chest Pain No Hx SOB Yes: Sporadic, intermittent, I cough a lot Hx Syncope or Dizziness No Anti-Coagulant Therapy No Has a Visual Arts Teacher No Cardiac Testing No Hx Pacemaker/ICD No Pacemaker Rep Required? No Cardiac Clearance Received Not Applicable Diet Type At Home Regular dysphagia No Urinary Catheter Present No Hx Urinary Self Catheterization No Diabetes No HgbA1C 5.2 Date 09/09/19 Patient No Lactating No Hx Drug Resistant Organism No Presence of External or Internal Medical Yes: Bilat hip, right knee Devices prosthesis Have you traveled outside the [facility] in the last 30 days? Marital Status Lives With family Prior Living Arrangements House Number of Floors (Floors) One Floor Number of Stairs To Enter/Railing? 3 steps, railing present Support System Child/Children,Family Does the Patient Have Assistance After Yes Surgery Patient Discharge Plan Description Return Home Comment Pt advised overnight length of stay per surgeon Feels Safe in Current Environment Yes Been Physically Hurt or Threatened By a No Person in Current Environment Do you have thoughts of harming yourself None or others? Are you currently considering suicide? No Do you have a plan to hurt yourself or No Plan others? Do You Have Any Spiritual Beliefs That No May Affect Your HC Choices? Do You Have Any Cultural Practices That No May Affect Your HC Choices? Spiritual Referral None Who Can We Speak to About Patient's Care Family, friends Identifying Code for Release of Patient Declines to issue Information Health Care Proxy/Next of Kin Jeremy english Felix (sons) Health Care Proxy Phone Number Jeremy: [phone] Felix: Emergency Contact Name Jeremy english Felix (sons) or Jake ( friend) Emergency Contact Phone Number Jeremy: [phone] Felix: [phone] Jake: [phone] Advance Directives? No: Declines further information Power of Head Loader No PAC Instructions Do not shave/clip surgical site,Durable medical equipment ,Medications to take/avoid, Nasal antibiotic,No ETOH/ petroleum product on skin DOS, NPO,Post-op transportation,Pre -surgical wash,Sturdy shoes/ comfortable clothes,Do not bring valuables and remove jewelry
== END 2019-10-01 14:45 | disposition home or self-care (01) ==
LOC: OR 08:30 → AC 14:13
PROVIDERS: PCP Physician Assistant Medical; Referring Provider Orthopaedic Surgery; Visit Provider Orthopaedic Surgery
PROC: 0SRD0JZ Replacement of Left Knee Joint with Synthetic Substitute, Open Approach (ICD-10-PCS; CPT 27447; principal; 2019-09-30 10:45)
DX: M17.12 Unilateral primary osteoarthritis, left knee (principal)
CPT/HCPCS: 27447; 36415; 73560; 85014; 85018; 97161; 97530; C1776; C9290; J0690; J1100; J2250; J2274; J2405; J2704; J3010